=== PATIENT | male | born 1970 | race Caucasian/White ===

== ENCOUNTER 2019-12-02 06:35 | Outpatient (CLI) | payer BC, SELFPAY ==
--- NOTE | ~2019-12-02 | MR_ITS ---
EXAMINATION: MR sacralison wo con DATE: 12/02/2019 07:55 INDICATION: Sacrococcygeal pain. Disorder of coccyx. TECHNIQUE: Magnetic resonance imaging (MRI) of the sacrum was performed without intravenous contrast. Sequences included sagittal PD-weighted FS FSE, coronal oblique T1-weighted FSE, T2-weighted FSE, an d T2-weighted FS FSE, and axial oblique T1-weighted FSE, T2-weighted FS FSE, and STIR FSE. COMPARISON: Lumbar spine radiographs 11/11/2018, CT abdomen and pelvis 07/05/2019 FINDINGS: Bone alignment is normal. No fracture. There is mild osteoarthritis of the sacroiliac joints. There i s mild edema in the soft tissues around the coccyx. IMPRESSION: 1. Mild edema in the soft tissues around the coccyx, consistent with inflammation. No fracture. Reviewed, dictated and finalized at location A. IMPRESSION: 1. Mild edema in the soft tissues around the coccyx, consistent with inflammati on. No fracture.
== END 2019-12-02 06:36 | disposition home or self-care (01) ==
PROVIDERS: PCP Internal Medicine; Visit Provider Internal Medicine Rheumatology
DX: M53.3 Sacrococcygeal disorders, not elsewhere classified (principal); M79.89 Other specified soft tissue disorders
CPT/HCPCS: 72195

== ENCOUNTER 2019-12-12 17:37 | Emergency (ER) | payer BC, SELFPAY ==
--- NOTE | ~2019-12-12 | CT_ITS ---
EXAMINATION: CT brain wo con EXAM DATE: 12/12/2019 18:12 INDICATION: Injury. Dizziness. TECHNIQUE: Spiral CT of the head was performed without contrast. Axial, coronal and sagittal images were reviewed. The dose-length product (DLP) for this examination was 605.33 mGy-cm. The exposure w as tailored according to patient size, and iterative reconstruction (ASIR) was used as additional dos e reduction technique. There is no prior study for comparison. FINDINGS: There is no acute intraparenchymal hemorrhage. No evidence of intraparenchymal brain mass lesion. No evidence of acute infarction. There is no mass effect or midline shift. The ventricles are normal in size. There are no extra-axial collections. There are no acute calvarial fractures. S urgical changes of the left globe. Orbits otherwise unremarkable. Soft tissue is unremarkable. The v isualized sinuses and mastoid air cells are well aerated. IMPRESSION: 1. No acute intracranial findings. Reviewed, dictated and finalized at location A.
--- NOTE | 2019-12-12 17:49 | ED.HEATRA ---
HPI - Head Injury General Chief complaint: Head Injury Stated complaint: hit head on ground Time Seen by Provider: 12/12/19 17:49 Source: patient and RN notes reviewed Mode of arrival: ambulatory Limitations: no limitations History of Present Illness HPI Narrative: Patient states he got up on a ladder to free a branch saw that became stuck when he was trimming a tree. He went up about 3 rungs on the ladder so was 3-4 feet off the ground. When the saw came loose he lost his balance and fell to the ground striking his head. Unknown if he had any loss of consciousness. He states last thing he remembers was his children running to get his . Complaint: head injury Mechanism of Injury: fall Place: home Loss of Consciousness: unsure Location of injury: parietal (right) Severity: mild Quality: dull and aching Radiation: none Other Injuries: none Associated symptoms: confusion and nausea Related Data Home Medications Medication Instructions Recorded Confirmed meloxicam 15 mg PO DAILY PRN 12/12/19 12/12/19 Allergies Allergy/AdvReac Type Severity Reaction Status Date / Time No Known Allergies Allergy Unverified 07/02/15 07:03 Review of Systems Constitutional: Constitutional: Reports no additional constitutional complaints and Denies weakness Eyes: Eyes: Reports no additional eye complaints and Denies change in vision ENT: Reports system reviewed and no additional complaints, except as documented and Denies dizziness Cardiovascular: Cardiovascular: Reports no additional cardiovascular complaints Respiratory: Respiratory: Reports no additional respiratory complaints Gastrointestinal: Gastrointestinal: Reports as per HPI and Reports no additional gastrointestinal complaints Musculoskeletal: Musculoskeletal: Reports no additional musculoskeletal complaints Neurologic: Reports as per HPI Psychiatric: Psychiatric: Reports no additional psychiatric complaints Hematologic/Lymphatic: Hematologic/Lymphatic: Reports no additional hematologic/lymphatic complaints Allergic/Immunologic: Allergic/Immunologic: Reports no additional allergic/immunologic complaints PMFSH Past Medical History Medical History (Updated 12/12/19 @ 18:46 by Artem Salguero MD) Osteoarthritis Surgical History Surgical History (Updated 12/12/19 @ 18:38 by Artem Salguero MD) H/O left knee surgery History of eye surgery left History of shoulder surgery right Exam Const: General: healthy appearing and no acute distress Nutritional Appearance: well nourished and obese centrally obese Orientation/consciousness: patient oriented x3 HENMT: Head: normal to inspection, No palpable skull fracture present, no abrasions and contusion right parietal (Mildly tender patient states it feels numb) Ears: external ears normal, TM's normal bilaterally and EAC's normal Face and sinus: normal facial exam Eyes: Conjunctivae: conjunctivae normal Pupils: Equal, round and reactive pupils present EOM: EOMs intact bilaterally Neck: Neck: normal visual inspection Resp: Effort & Inspection: normal respiratory effort Auscultation: clear to auscultation bilaterally Cardio: Rate: regular rate Rhythm: regular rhythm GI: GI Palp: Yes Soft to palpation and No Tenderness to palpation present (GI) Auscultation: normal bowel sounds : Male General Exam: Yes normal external exam Back/Spine/Pelvis: Cervical Spine: cervical ROM normal Thoracic/Lumbar Spine: thoraco-lumbar ROM normal Skin: General skin exam: normal color Rashes: no rashes Neuro: General: patient oriented x3, moves all extremities and no focal motor deficits Speech: normal speech Gait exam (Neuro): Normal gait present Extrem: General: normal to inspection and no pedal edema Psych: Appearance: grossly normal and well kempt Mental Status: mental status grossly normal Affect: normal affect Attitude: cooperative Thought content: Yes Normal thought content present Course Co
[2019-12-12 17:52] VITALS: BP 143/81; PULSE 96; RESP 22; TEMP 36.7; O2SAT 98
[2019-12-12 18:54] VITALS: RESP 16
== END 2019-12-12 18:55 | disposition home or self-care (01) ==
PROVIDERS: Emergency Provider Emergency Medicine; PCP Internal Medicine
DX: S06.0X0A Concussion without loss of consciousness, initial encounter (principal); W11.XXXA Fall on and from ladder, initial encounter
CPT/HCPCS: 70450; 99282; 99284

== ENCOUNTER 2021-03-07 18:23 | Emergency (ER) | payer BC, SELFPAY ==
--- NOTE | ~2021-03-07 | XR_ITS ---
EXAMINATION: XR chest 2V DATE: 03/07/2021 19:23 INDICATION: Central chest pain. TECHNIQUE: Frontal and lateral views of the chest were obtained on 3 radiographs. COMPARISON: Chest 2 views 07/14/2017 FINDINGS: A calcified left lung nodule is consistent with old granulomatous disease. No pleural effus ion or pneumothorax. The heart size is normal. IMPRESSION: 1. No acute cardiopulmonary disease. Reviewed, dictated and finalized at location A.
--- NOTE | 2021-03-07 18:29 | ECG_ITS ---
Measurements Intervals [place] Rate: 107 P: 56 AK: 159 QRS: -11 QRSD: 111 T: 0 QT: 335 QTc: 448 Interpretive Statements SINUS TACHYCARDIA INCOMPLETE RIGHT BUNDLE BRANCH BLOCK BORDERLINE T WAVE ABNORMALITY- INFERIOR LEADS BASELINE ARTIFACT- I, III, AVL, V1 ABNORMAL ECG Electronically Signed On 03-07-2021 20:19:01 CDT by Omar Whyte D.O.
--- NOTE | 2021-03-07 18:30 | ED.SOB ---
HPI - SOB/Dyspnea General Chief Complaint: Chest Pain Stated Complaint: chest pain Source: patient Mode of arrival: ambulatory Limitations: no limitations History of Present Illness HPI Narrative: this is a 50-year-old gentleman that presents after he was jogging with sharp chest discomfort with some mild shortness of breath with no audible wheezing nonsmoker no history of heart disease or disease in his family with a history of hypertension, the chest pain and shortness of breath have suffered subsequently subsided but he felt a sharp midsternal chest discomfort that lasted a few seconds while he was jogging with no fever chills no cough no abdominal pain no flank pain. MD elicited complaint: shortness of breath and chest pain Onset (ago): hour(s) Timing: constant Severity: moderate Exacerbating factors: nothing Relieving factors: nothing Known history of: DVT Related Data Home Medications Medication Instructions Recorded Confirmed celecoxib 200 mg PO DAILY 03/07/21 03/07/21 cyclobenzaprine 5 mg PO TID 03/07/21 03/07/21 Allergies Allergy/AdvReac Type Severity Reaction Status Date / Time No Known Allergies Allergy Unverified 03/07/21 18:49 Review of Systems Review of Systems: All systems reviewed & are unremarkable except as noted in HPI and below PMFSH Past Medical History Medical History Osteoarthritis Surgical History Surgical History H/O left knee surgery History of eye surgery left History of shoulder surgery right Exam Const: General: no acute distress and alert Orientation/consciousness: patient oriented x3 HENMT: Head: normal to inspection Eyes: Conjunctivae: conjunctivae normal Pupils: Equal, round and reactive pupils present Neck: Neck: normal visual inspection, no lymphadenopathy and no meningeal signs Chest: Chest palpation & inspection: normal inspection of the chest Resp: Effort & Inspection: normal respiratory effort Auscultation: clear to auscultation bilaterally Cardio: Rate: regular rate Rhythm: regular rhythm GI: GI Palp: Yes Soft to palpation Back/Spine/Pelvis: Back: no CVA tenderness Skin: General skin exam: normal color Rashes: no rashes Neuro: General: patient oriented x3 Extrem: General: normal to inspection Psych: Mental Status: mental status grossly normal Affect: normal affect Course Course Emergency Course: Labs and EKG along with chest x-ray reviewed with patient and no evidence of heart disease, advised to follow with his primary care physician. Critical Care Time Critical Care Time Critical Care Time: No Discharge Plan Discharge Clinical Impression: Atypical chest pain Patient Disposition: Home, Self-Care Condition: Stable Instructions: Antibiotic Form, Chest Wall Pain (ED) Additional Instructions: Follow up with primary care physician if symptoms persist or worsen. Prescriptions: No Action celecoxib 200 mg capsule 200 mg PO DAILY RF: 0 cyclobenzaprine 5 mg tablet 5 mg PO TID RF: 0 Follow-up/Referrals: Jesus Clements MD [Primary Care Provider] - Time of Disposition: 19:29
[2021-03-07 18:41] VITALS: BP 153/96; PULSE 101; RESP 20; TEMP 36.4; O2SAT 98
[2021-03-07 19:17] LABS: Troponin I 5.7 ng/L (0.00-60.4)
[2021-03-07 19:40] VITALS: BP 119/88; PULSE 95; RESP 20; O2SAT 96
== END 2021-03-07 19:41 | disposition home or self-care (01) ==
PROVIDERS: Emergency Provider Emergency Medicine; PCP Internal Medicine
DX: R07.89 Other chest pain (principal)
CPT/HCPCS: 36415; 71046; 84484; 93005; 99283; 99284

== ENCOUNTER 2021-05-28 14:10 | Outpatient (CLI) | payer BC, SELFPAY ==
[2021-05-28 15:00] LABS: SARS-CoV-2 RNA PCR Negative (Negative)
== END 2021-05-28 14:11 | disposition home or self-care (01) ==
LOC: CHSLAB 14:12
PROVIDERS: PCP Internal Medicine; Visit Provider Internal Medicine
DX: Z20.822 Contact with and (suspected) exposure to COVID-19 (principal)
CPT/HCPCS: 87081; 87880; C9803; U0003; U0005

== ENCOUNTER 2021-12-17 00:08 | Day surgery (SDC) | payer OTHER, SELFPAY ==
[2021-11-19 14:02] VITALS: BMI 33.4
--- NOTE | 2021-12-06 10:08 | PC.NURSE ---
Spoke with pt re rescheduled colonoscopy. Pt verbalized understanding of updated date/arrival/procedure times. Pt denied any changes to his home medications for health history since previous PAT call completed 11/19/2021.
--- NOTE | 2021-12-17 07:53 | P.PNAN_ITS ---
Anes - Initial Pre Proc Eval Procedure: Operation Date: 12/17/21 13:00 Proposed Procedures p Screening Colonoscopy - Artem Casey MD Date/Time: 12/17/21 07:53 Surgeon: Artem Casey MD Pre Op Diagnosis: hx of colon polyps Patient Data Age: 51 Gender: M Height: 1.88 m Weight: 118 kg Allergies Allergy/AdvReac Type Severity Reaction Status Date / Time No Known Allergies Allergy Unverified 12/17/21 11:41 Home Medications Medication Instructions Recorded Confirmed Type celecoxib 200 mg capsule 200 mg PO DAILY 03/07/21 12/06/21 History cetirizine 10 mg tablet (Zyrtec) 10 mg PO DAILY PRN Allergy Symptoms 11/19/21 12/06/21 History Patient hx anesthesia problems: none Family hx anesthesia problems: none Results Review: All pre-operative results and documents have been reviewed as part of the pre- operative evaluation. [facility] Past Medical History Medical History (Updated 12/17/21 @ 12:11 by Artem Casey MD) Diverticulosis GERD (gastroesophageal reflux disease) Osteoarthritis Surgical History Surgical History H/O left knee surgery History of eye surgery left History of shoulder surgery right Social History Social History Tobacco type: smokeless tobacco Smokeless tobacco user: chewing tobacco Alcohol intake: current Alcohol use details: socially Living arrangements: with family Spiritual care concerns: No Anes - Eval Final PreProcedure Day of Procedure 12/17/21 07:53 Patient weight: obese Heart: regular rate and rhythm Lungs: clear to auscultation Airway: Mallampati scale class II Neurological: alert and oriented Last oral intake: >/= 8 hours ASA classification: II Emergent: no Anesthetic plan: proceed Anesthesia type and monitoring: general GIVS and standard monitoring Results Review: All pre-operative results and documents have been reviewed as part of the pre- operative evaluation. Informed Consent: The patient's anesthetic plan and its attendant risks and benefits were discussed with the patient/family/POA. Questions were solicited and answers provided to the satisfaction of the patient/family/POA.
[2021-12-17 11:43] VITALS: BP 112/81; PULSE 84; RESP 18; TEMP 36.8; O2SAT 99
[2021-12-17] MEDS: LACTATED RINGERS 1,000 ML 150 ML IV CONT (11:57)
--- NOTE | 2021-12-17 12:09 | P.CONGI_ITS ---
Assessment and Plan Assessment and plan (1) History of colon polyps: Code(s): Z86.010 - Personal history of colonic polyps Status: Acute Assessment and Plan: Patient has a prior history of colon polyps. Plan is for surveillance colonoscopy now and at intervals in the future. Typically at 5 year intervals suggested. Further recommendations will be given after colonoscopy. (2) LLQ abdominal pain: Code(s): R10.32 - Left lower quadrant pain Status: Acute Assessment and Plan: Patient complains of left lower quadrant pain that is present constantly. Not evident today on exam. He has a prior history of diverticulosis. This will be assessed at the time of colonoscopy. Continuing high-fiber diet appears prudent. Further recommendations may be given after endoscopy. GI Consult Note Consult date/time: 12/17/21 12:09 Reason for consult: History of colon polyps. HPI: Jim Pacheco is a 51 year old male Presents for screening colonoscopy. Patient has a history of colon polyps in 2014. He states his bowel habits remain normal. Although he has an ongoing left lower quadrant abdominal pain that is been in blamed on diverticular disease. Patient has never tried antibiotics. He states his bowel habits are regular he has had no bleeding. He does maintain a high-fiber diet. Family history is noncontributory. Patient presents today for screening colonoscopy to assess this as well as his history of colon polyps. Review of Systems Review of Systems: Review of systems noncontributory. [facility] Past Medical History Medical History (Updated 12/17/21 @ 12:11 by Artem Casey MD) Diverticulosis GERD (gastroesophageal reflux disease) Osteoarthritis Surgical History Surgical History H/O left knee surgery History of eye surgery left History of shoulder surgery right Social History Social History Tobacco type: smokeless tobacco Smokeless tobacco user: chewing tobacco Alcohol intake: current Alcohol use details: socially Living arrangements: with family Spiritual care concerns: No Meds Home Medications and Allergies Home Medications Medication Instructions Recorded Confirmed Type celecoxib 200 mg capsule 200 mg PO DAILY 03/07/21 12/06/21 History cetirizine 10 mg tablet (Zyrtec) 10 mg PO DAILY PRN Allergy Symptoms 11/19/21 12/06/21 History Allergies Allergy/AdvReac Type Severity Reaction Status Date / Time No Known Allergies Allergy Unverified 12/17/21 11:41 Vital Signs Vital Signs - 24 hr 12/17/21 11:43 Temperature 98.2 F Pulse Rate 84 Respiratory Rate 18 Blood Pressure 112/81 Pulse Oximetry 99 Oxygen Delivery Room Air Exam Narrative: physical exam reveals patient to be alert. Vital signs stable. HEENT exam is unremarkable. Patient is anicteric. Lungs are clear to auscultation and percussion. Heart is without murmur or extra sounds. Abdomen is obese. Bowel sounds are present soft nontender with no organomegaly. Digital rectal exam is normal. Extremities without clubbing cyanosis or edema.
[2021-12-17 13:15] VITALS: BP 127/74; PULSE 76; RESP 17; O2SAT 99
[2021-12-17 13:25] VITALS: BP 126/90; PULSE 73; RESP 19; O2SAT 100
[2021-12-17 13:35] VITALS: BP 119/83; PULSE 73; RESP 18; O2SAT 98
== END 2021-12-17 13:46 | disposition home or self-care (01) ==
PROVIDERS: PCP Internal Medicine; Visit Provider Internal Medicine Gastroenterology
PROC: 0DJD8ZZ Inspection of Lower Intestinal Tract, Via Natural or Artificial Opening Endoscopic (ICD-10-PCS; CPT 45378; principal; 2021-12-17 13:00)
DX: Z12.11 Encounter for screening for malignant neoplasm of colon (principal); K64.8 Other hemorrhoids; K57.30 Diverticulosis of large intestine without perforation or abscess without bleeding; R10.32 Left lower quadrant pain; Z86.010 Personal history of colon polyps; K21.9 Gastro-esophageal reflux disease without esophagitis; M19.90 Unspecified osteoarthritis, unspecified site; F17.220 Nicotine dependence, chewing tobacco, uncomplicated; E66.9 Obesity, unspecified; Z68.34 Body mass index [BMI] 34.0-34.9, adult
CPT/HCPCS: 45378; J2001; J2704; J7120

== ENCOUNTER 2022-03-06 14:09 | Outpatient (CLI) | payer OTHER, SELFPAY ==
--- NOTE | ~2022-03-06 | XR_ITS ---
EXAMINATION: XR lumbar spine 2-3V, XR hip LT min 2V DATE: 03/06/2022 14:33 INDICATION: Lateral left hip pain and medial left leg pain when lifting the leg TECHNIQUE: 1. Anteroposterior and lateral views of the lumbar spine, and cone-down lateral view of the lumbosacr al junction were obtained. 2. AP and frog-leg lateral views of the left hip were obtained. COMPARISON: Lumbar spine radiographs dated 11/11/[address] abdomen and pelvis dated 07/05/2019 FINDINGS: Lumbar spine: Alignment is normal. Vertebral body heights are normal. No fracture. Mild disc height loss at L4-L5 a nd L5-S1. Multilevel mild lumbar facet osteoarthritis. Sacral arches are intact. Mild bilateral sacra l iliac osteoarthritis. Left hip: Alignment is normal. No fracture or suspected avascular necrosis. Left hip joint space is normal. The re is decreased anterosuperior femoral head neck offset with cystic change at the anterosuperior femo ral head neck junction which can be seen with cam-type femoral acetabular impingement. There are a fe w bone islands at the proximal left femur and left acetabulum. Small phlebolith projects over the lef t pubic body. IMPRESSION: 1. No significant change in mild lower lumbar spondylosis. 2. Findings at the left femoral head neck junction suggesting possible cam-type femoral acetabular im pingement which typically presents with pain with flexion, adduction and internal rotation which woul d be similar to the description of the leg pain elevation of the leg. Reviewed, dictated and finalized at location A. IMPRESSION: 1. No significant change in mild lower lumbar spondylosis. 2. 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
== END 2022-03-06 14:10 | disposition home or self-care (01) ==
LOC: CHSIMG 14:12
PROVIDERS: PCP Internal Medicine; Visit Provider Internal Medicine
DX: M25.552 Pain in left hip (principal); M79.605 Pain in left leg
CPT/HCPCS: 72100; 73502

== ENCOUNTER 2023-06-08 21:15 | Emergency (ER) | payer OTHER, SELFPAY ==
--- NOTE | ~2023-06-08 | CT_ITS ---
EXAMINATION: CT abdomen pelvis w con DATE: 06/08/2023 23:19 INDICATION: Left lower quadrant abdominal pain. TECHNIQUE: Computed tomography (CT) of the abdomen and pelvis was performed with 100 mL Omnipaque 350 intravenous contrast. Automated exposure control and iterative reconstruction technique were employe d. The dose-length product was 1551.81 mGy-cm. COMPARISON: CT abdomen and pelvis 07/05/2019 FINDINGS: The visualized portions of the lung bases demonstrate mild atelectasis. No pleural effusion . The heart size is normal. No pericardial effusion. The liver, gallbladder, spleen, pancreas, adrena l glands, and right kidney are normal. There is mild left hydronephrosis. There is a 4 mm stone at le ft ureteral pelvic junction. The prostate is mildly enlarged. There is diverticulosis of the colon wi thout evidence of diverticulitis. There are no dilated loops of bowel. The appendix is normal. There are no pathologically enlarged lymph nodes. There is no free intraperitoneal fluid. There is mild tho racic and lumbar spondylosis. IMPRESSION: 1. 4 mm stone at left ureteropelvic junction with mild left hydronephrosis. Reviewed, dictated and finalized at location E. [employer]
[2023-06-08 21:21] VITALS: BP 148/85; PULSE 87; RESP 20; TEMP 36.6; O2SAT 98
[2023-06-08] MEDS: MORPHINE SULFATE (*CRX) 4 MG/ML INJ 8 MG IV PUSH (21:37)
[2023-06-08 21:48] LABS: Basophils Absolute Auto 0.05 K/mm3 (0.00-0.10); Basophils Percent Auto 0.5 % (0.0-1.0); Eosinophils Absolute Auto 0.39 K/mm3 (0.02-0.50); Eosinophils Percent Auto 4.1 % (1.0-6.0); Hematocrit 42.2 % (40.0-54.0); Hemoglobin 14.6 g/dL (14.0-18.0); Immature Granulocyte Absolute 0.03 K/mm3 (0.00-0.00); Immature Granulocyte Percent A 0.3 % (0.0-0.0); Lymphocytes Percent Auto 13.7 % (18.0-42.0); Mean Corpuscular HGB Conc 34.6 g/dL (32.0-36.0); Mean Corpuscular Hemoglobin 33.9 pg (27.0-31.0); Mean Corpuscular Volume 97.9 fL (78.0-102.0); Mean Platelet Volume 8.2 fl (8.7-11.0); Monocytes Absolute Auto 0.99 K/mm3 (0.10-0.90); Monocytes Percent Auto 10.5 % (2.0-11.0); Neutrophils Absolute Auto 6.7 K/mm3 (1.7-7.2); Neutrophils Percent Auto 70.9 % (50.0-70.0); Platelet Count Result 224 K/mm3 (150-420); Red Blood Count 4.31 M/mm3 (4.70-6.10); Red Cell Distribution Width 11.4 % (11.6-14.4); White Blood Count 9.5 K/mm3 (4.8-10.8)
[2023-06-08 22:09] LABS: Appearance Urine Turbid (Clear); Bilirubin Urine Negative (Negative); Blood Urine 3+ (Negative); Glucose Urine UA 1+ (Negative); Ketones Urine 2+ (Negative); Leukocyte Esterase Ur 2+ LEU/UL (Negative); Nitrate Urine Positive (Negative); Protein Urine 3+ (Negative); pH Urine 6.5 (5.0-8.0)
[2023-06-08 22:12] LABS: Add Urine Microscopic? YES; RBC Urine >75 /hpf (0-2)
[2023-06-08 22:13] LABS: Bacteria Urine 2+ /hpf; Color Urine Dark Brown (Yellow); Squamous Epithelial Cell Urine None seen /hpf (Few)
[2023-06-08 22:20] LABS: Lactic Acid Reflex 1.4 mmol/L (0.4-2.0)
[2023-06-08 22:25] LABS: Alanine Aminotransferase 31 U/L (16-63); Albumin Level 3.5 g/dL (3.4-5.0); Alkaline Phosphatase 81 U/L (46-116); Anion Gap 6 mmol/L (8-16); Aspartate Amino Transferase 19 U/L (15-37); Bilirubin,Total 0.3 mg/dL (0.00-1.00); Blood Urea Nitrogen 15 mg/dL (7-18); Calcium 8.5 mg/dL (8.5-10.1); Carbon Dioxide 30 mmol/L (21-32); Chloride 103 mmol/L (98-108); Estimated CRCL calculation 94 ml/min; Estimated Glomerular Filt Rate > 60; Glucose 97 mg/dL (70-99); Osmolality Calculated 288 mOsm/kg (285-295); Potassium 3.4 mmol/L (3.5-5.1); Sodium 139 mmol/L (136-145); Total Protein 6.8 g/dL (6.4-8.2)
--- NOTE | 2023-06-08 22:38 | ED.ABDPAIN ---
HPI - Abdominal Pain General Chief Complaint: Abdominal Pain Stated Complaint: abd pain Time Seen by Provider: 06/08/23 21:25 History of Present Illness HPI narrative: 52 yo M with history of diverticulitis presents to ER due to LLQ pain, severe, 10/10 in quality, sharp. He has chronic back pain so his back and flank always hurt. Denied fever or chills. Has not had a bowel movement today. Related Data Home Medications Medication Instructions Recorded Confirmed No Home Medications 06/08/23 06/08/23 Allergies Allergy/AdvReac Type Severity Reaction Status Date / Time No Known Allergies Allergy Unverified 12/17/21 11:41 Review of Systems Constitutional: Constitutional: Reports as per HPI and Reports no additional constitutional complaints Eyes: Eyes: Reports as per HPI and Reports no additional eye complaints ENT: Reports system reviewed and no additional complaints, except as documented and Reports as per HPI Cardiovascular: Cardiovascular: Reports as per HPI and Reports no additional cardiovascular complaints Respiratory: Respiratory: Reports as per HPI and Reports no additional respiratory complaints Gastrointestinal: Gastrointestinal: Reports as per HPI and Reports no additional gastrointestinal complaints Genitourinary: Genitourinary: Reports as per HPI Musculoskeletal: Musculoskeletal: Reports no additional musculoskeletal complaints and Reports as per HPI Integumentary/Breasts: Skin/Breast: Reports system reviewed and no additional complaints, except as docu and Reports as per HPI Neurologic: Reports system reviewed and no additional complaints, except as documented and Reports as per HPI Psychiatric: Psychiatric: Reports no additional psychiatric complaints and Reports as per HPI Endocrine: Endocrine: Reports no additional endocrine complaints and Reports as per HPI Hematologic/Lymphatic: Hematologic/Lymphatic: Reports no additional hematologic/lymphatic complaints and Reports as per HPI Allergic/Immunologic: Allergic/Immunologic: Reports no additional allergic/immunologic complaints and Reports as per HPI [facility] Past Medical History Medical History (Updated 06/09/23 @ 01:17 by Jose Alvarez MD) Diverticulosis GERD (gastroesophageal reflux disease) Osteoarthritis Surgical History Surgical History H/O left knee surgery History of eye surgery left History of shoulder surgery right Social History Social History Tobacco type: smokeless tobacco Smokeless tobacco user: chewing tobacco Alcohol intake: current Alcohol use details: socially Living arrangements: with family Spiritual care concerns: No Exam Const: General: cooperative, well developed, alert, awake, ill appearing, average body habitus and well nourished Nutritional Appearance: average body habitus and well nourished Orientation/consciousness: oriented to person, oriented to place and oriented to time Limitations: no limitations HENMT: Head: normal to inspection Ears: hearing grossly normal bilaterally, external ears normal and TM's normal bilaterally Face/Nose/Sinus: Normal external nose present, Normal nares present, No nasal polyps present, Normal nasal mucous membranes and turbinates present, Normal septum present, No nasal discharge present, normal facial exam, sinuses nontender and face symmetric Face and sinus: normal facial exam, sinuses nontender and face symmetric Mouth: Yes Normal oral and palatal mucosa present, Yes lip normal, Yes tongue normal, Yes Normal salivary glands and ducts present, Yes oropharynx normal and Yes moist mucous membranes Teeth and gingiva: dentition normal and gingiva normal Throat: posterior oropharynx normal, tonsils normal and uvula midline Eyes: General: appearance normal, both eyes and all related structures Eyelids: eyelids normal Conjunctivae: conjunctivae norm
[2023-06-08] MEDS: SODIUM CHLORIDE 0.9% IV 1,000 ML 999 ML IV CONT (23:27)
[2023-06-08] MEDS: KETOROLAC 30 MG/ML VIAL (*BKC) IV PUSH (23:28)
--- NOTE | 2023-06-08 23:33 | PC.NURSE ---
POC discussed c pt and . Pt would like transfer to [place] for urology if able. Calls made for transfer.
[2023-06-08 23:48] VITALS: BP 146/85; PULSE 74; RESP 20; TEMP 36.6; O2SAT 98
[2023-06-09] MEDS: TAMSULOSIN HCL 0.4 MG CAPSULE PO (00:01)
--- NOTE | 2023-06-09 01:08 | PC.NURSE ---
Pt accepted by urologist at [facility] for transfer. Per house supv. pt. will have bed when available. Will await call back from Dr Young, hospitalist for admit. POC updated c pt. and explained that he will be staying here until bed is open. Pt resting c fluids infusing as per order.
[2023-06-09] MEDS: MORPHINE SULFATE (*CRX) 4 MG/ML INJ IV PUSH (01:18)
[2023-06-09] MEDS: SODIUM CHLORIDE 0.9% IV 1,000 ML 999 ML IV CONT (01:18)
[2023-06-09 01:24] VITALS: BP 140/85; PULSE 85; RESP 20; TEMP 36.6; O2SAT 99
[2023-06-09 01:31] VITALS: BP 145/86; PULSE 74; RESP 20; TEMP 36.6; O2SAT 99
--- NOTE | 2023-06-09 02:05 | PC.NURSE ---
Report given to GBAAS and pt loaded to cot s difficulty. Pain controlled at this time c fluids continuing to infuse on transfer.
--- NOTE | 2023-06-11 12:27 | PC.NURSE ---
culture noted no growth
== END 2023-06-09 02:09 | disposition short-term general hospital (02) ==
PROVIDERS: Emergency Provider Emergency Medicine; PCP Internal Medicine
DX: N20.0 Calculus of kidney (principal); F17.290 Nicotine dependence, other tobacco product, uncomplicated
CPT/HCPCS: 36415; 74177; 80053; 81001; 83605; 85025; 87086; 96361; 96365; 96374; 96375; 99285; A9270; J0696; J1885; J2270; J7030; Q9967

== ENCOUNTER 2023-06-09 02:55 | Observation (INO) | payer OTHER, SELFPAY ==
[2023-06-09] VITALS (9 sets, daily range): BP systolic 98–133; BP diastolic 48–83; PULSE 62–79; RESP 13–20; TEMP 36.1–36.9; O2SAT 93–99; BMI 36.7
--- NOTE | ~2023-06-09 | XR_ITS ---
XR abdomen/kub 1V 06/09/2023 09:13 INDICATION: Flank pain TECHNIQUE: KUB COMPARISON: None FINDINGS: Bowel gas pattern is normal. There is no evidence of free air, mass, organomegaly, ascites or obstruction. There is a 3 mm stone overlying the left renal pelvis. The bones appear intact. IMPRESSION: 1: Left nephrolithiasis. Reviewed, dictated and finalized at location D. ET SPECIALIST IMPRESSION: 1: Left nephrolithiasis.
--- NOTE | ~2023-06-09 | XR_ITS ---
EXAMINATION: XR retrograde pyelo w/stent LT DATE: 06/09/2023 10:31 INDICATION: Left internal ureteral stent placement TECHNIQUE: Fluoroscopic images from a left internal ureteral stent placement are submitted for review . 12 seconds of fluoroscopy time. 9 fluoroscopic images FINDINGS: There is a left double-J internal ureteral stent projecting in expected position, with proximal [place] loop at the level of the renal pelvis and distal loop in the pelvis within the bladder lumen. IMPRESSION: 1. Left internal ureteral stent placement. Please refer to real-time procedural findings for detail s. Reviewed, dictated and finalized at location L. LEWARE SYSTEMS ARCHITECT IMPRESSION: 1. Left internal ureteral stent placement. Please refer to real-time procedur al findings for details.
--- NOTE | ~2023-06-09 | XR_ITS ---
XR abdomen/kub 1V 06/09/2023 13:36 Indication: Left UPJ stone post stent placement Procedure: KUB Comparison: 06/09/2023 Findings: There is a left internal ureteral stent in expected position. There is a stone in the upper pole of the left kidney. There is residual contrast in the bladder. Bowel gas pattern is nonobstruct yamilex. No acute osseous abnormality. Impression: 1: Left nephrolithiasis. Left internal ureteral stent in expected position. Reviewed, dictated and finalized at location L. ANCE EDUCATION COORDINATOR Impression: 1: Left nephrolithiasis. Left internal ureteral stent in expected position.
--- NOTE | 2023-06-09 02:53 | ADMGEN ---
This patient, Jim Pacheco, was admitted to Medical Room 253-01. Patient/family oriented to hospital policies and general routines including ID bracelet, bed and alarms, visiting hours, pain management, procedures, bathroom and other care routines, personal items, smoking policy, room service/diet, and visiting hours. Information on how to activate the Rapid Response Team has been discussed. Patient/Family are encouraged to report perceived risks to care and to ask questions if they do not understand what they are told or what they should do.
[2023-06-09] MEDS: SODIUM CHLORIDE 0.9% IV 1,000 ML 150 ML IV CONT ×3 (03:20→21:00)
[2023-06-09] MEDS: MORPHINE SULFATE (*CRX) 2 MG/ML INJ IV PUSH (03:20)
[2023-06-09] MEDS: LACTATED RINGERS 1,000 ML 30 ML IV CONT (09:20)
--- NOTE | 2023-06-09 09:54 | WPDURCON ---
Assessment and Plan Assessment and plan (1) Left nephrolithiasis: Code(s): N20.0 - Calculus of kidney Status: Acute Assessment and Plan: Given the hydro with what appears to be infected urine will plan on cysto, left retrograde pyelogram, left ureteral stent placement. Stone will be addressed at a later point time. (2) UTI (urinary tract infection): Code(s): N39.0 - Urinary tract infection, site not specified Status: Acute Assessment and Plan: Cultures pending from [facility] Consult Note HPI Date Seen: 06/09/23 Time Seen: 09:54 Requesting Physician: Doni Patton MD Primary Care Provider: Jesus Clements MD Consult Narrative Reason for consult: Left UPJ stone with mild hydro and UTI Narrative: Jim Pacheco is a 52 year old male who was transferred from [facility]. He presented there was significant left lower quadrant pain. Evaluation in the emergency room revealed a 3-4 mm left UPJ stone with hydro. Although his white count was not elevated his urinalysis appeared infected and they had difficulty controlling his pain. He is now here for further management. Review of Systems Review of Systems: All systems reviewed & are unremarkable except as noted in HPI and below PMFSH Past Medical History Medical History Diverticulosis GERD (gastroesophageal reflux disease) Osteoarthritis Surgical History Surgical History H/O left knee surgery History of eye surgery left History of shoulder surgery right Family History Family History Father Hypertension Mother Hypertension Diverticula, colon Social History Social History Tobacco type: smokeless tobacco Smokeless tobacco user: chewing tobacco Alcohol intake: never Alcohol use details: socially Substance use: never Lack of Transportation: No Lack of Food: Never True Current Housing: I Have Housing Concerned About Future Housing: No Difficulty Paying Gas/Electric Bills: No Difficulty Paying for Meds: No Currently Unemployed: No Education: Associate Degree Difficulty w/ Childcare or Family Care: No Living arrangements: with family Spiritual care concerns: No Meds Home Medications and Allergies Home Medications Medication Instructions Recorded Confirmed Type No Home Medications 06/08/23 06/09/23 History Allergies Allergy/AdvReac Type Severity Reaction Status Date / Time No Known Allergies Allergy Verified 06/09/23 09:44 Vital Signs Vital Signs - 24 hr 06/09/23 02:59 06/09/23 02:56 06/09/23 05:19 Temperature 36.4 C 36.4 C L Pulse Rate 68 62 Respiratory Rate 20 20 Blood Pressure 127/83 118/57 L Pulse Oximetry 98 95 Oxygen Delivery Room Air Exam Const: General: cooperative HENMT: Head: normal to inspection Resp: Effort & Inspection: normal respiratory effort Cardio: Rate: regular rate
--- NOTE | 2023-06-09 10:02 | WPDHPUPDATE1 ---
History and Physical Update Update Date/Time: 06/09/23 10:02 History and Physical has been reviewed, including an updated exam of the patient. There are NO changes in the patient's condition. Risks, benefits, and alternatives have been discussed and questions answered. Patient agrees to proceed with procedure.
--- NOTE | 2023-06-09 10:04 | WPDANESEPPF ---
Anes - Initial Pre Proc Eval Procedure: Operation Date: 06/09/23 10:15 Proposed Procedures p Cystoscopy, Left Retrograde Pyelogram, Left Stent Placement - Kamron Crabtree MD Date/Time: 06/09/23 10:04 Surgeon: Doni Patton MD Pre Op Diagnosis: Hydronephrosis w/Kidney Infection Patient Data Age: 52 Gender: M Height: 1.88 m Weight: 129.7 kg Last Vital Signs Temp 36.4 C L 06/09/23 05:19 Pulse 62 06/09/23 05:19 Resp 20 06/09/23 05:19 BP 118/57 L 06/09/23 05:19 Pulse Ox 95 06/09/23 05:19 O2 Del Method Room Air 06/09/23 02:59 Allergies Allergy/AdvReac Type Severity Reaction Status Date / Time No Known Allergies Allergy Verified 06/09/23 09:44 Home Medications Medication Instructions Recorded Confirmed Type No Home Medications 06/08/23 06/09/23 History Patient hx anesthesia problems: none Family hx anesthesia problems: none Results Review: All pre-operative results and documents have been reviewed as part of the pre-operative evaluation. [facility] [place] Past Medical History Medical History Diverticulosis GERD (gastroesophageal reflux disease) Osteoarthritis Surgical History Surgical History H/O left knee surgery History of eye surgery left History of shoulder surgery right Family History Family History Father Hypertension Mother Hypertension Diverticula, colon Social History Social History Tobacco type: smokeless tobacco Smokeless tobacco user: chewing tobacco Alcohol intake: never Alcohol use details: socially Substance use: never Lack of Transportation: No Lack of Food: Never True Current Housing: I Have Housing Concerned About Future Housing: No Difficulty Paying Gas/Electric Bills: No Difficulty Paying for Meds: No Currently Unemployed: No Education: Associate Degree Difficulty w/ Childcare or Family Care: No Living arrangements: with family Spiritual care concerns: No Anes - Eval Final PreProcedure Day of Procedure 06/09/23 10:04 Patient weight: obese Heart: regular rate and rhythm Lungs: clear to auscultation Airway: Mallampati scale class II Neurological: alert and oriented Last oral intake: >/= 8 hours ASA classification: II Emergent: no Anesthetic plan: proceed Anesthesia type and monitoring: general GIVS and standard monitoring Results Review: All pre-operative results and documents have been reviewed as part of the pre-operative evaluation. Informed Consent: The patient's anesthetic plan and its attendant risks and benefits were discussed with the patient/family/POA. Questions were solicited and answers provided to the satisfaction of the patient/family/POA.
--- NOTE | 2023-06-09 10:32 | W.PM.PROC2 ---
Procedure Note - Detailed Date of Procedure 06/09/23 Pre-op Diagnosis Left hydronephrosis w/Kidney Infection Post-op Diagnosis Same Procedure Performed Cystoscopy, left retrograde pyelogram, left ureteral stent placement 4.8 Hungarian contour Surgeon Kamron Crabtree MD Anesthesia General Description of Procedure Patient is taken the operative suite correctly identified. Once anesthesia was obtained was placed in dorsal lithotomy position and prepped and draped usual sterile fashion. Twenty-two Hungarian scope was inserted the bladder. There were no tumors noted. The left year orifice was cannulated with a ureteral catheter and a pyelogram was performed. There were no filling defects in the ureter. The stone appeared to be at the UPJ area. A Sensor wire was then advanced up into the renal pelvis. 4.8 Hungarian contour stent was then placed with the proximal end coiled in the left renal pelvis and the distal in the bladder. Bladder was drained. 2% viscous lidocaine was inserted urethra and patient is taken recovery stable condition. Once he gets over his acute infection will plan obtaining a KUB and scheduling him for lithotripsy if his stone is visible. This completes dictation. Please send a copy of op note to my office. Estimated Blood Loss 0 Urine Output 0 Drains Yes Packing No Pathology None sent Complications No immediate complications Condition Stable Disposition PACU
[2023-06-09] MEDS: levoFLOXacin 500 MG/D5W 100 ML 500 MG/100 ML BAG 100 MG IVPB (12:35)
--- NOTE | 2023-06-09 17:25 | PM.IMHP ---
H&P: HPI History of Present Illness Date/Time: 06/09/23 17:25 Chief Complaint: Patient complaining of left flank pain for last couple of days Narrative: Pleasant 52 years old obese male is complaining of left flank pain for the last couple of days, which is now getting progressively worse, intensity 9 to 10/10 radiating to the back, and he came to the ER for evaluation. Workup was done which showed left UPJ calculus 4 mm in size with hydronephrosis. Patient started on IV hydration, IV antibiotics and admitted for urology evaluation, close monitoring and further intervention. Review of Systems Review of Systems: 14 systems were reviewed with pertinent positives and negatives per HPI. Except as documented in the HPI/progress notes, all other systems were reviewed and are negative. All systems reviewed & are unremarkable except as noted in HPI and below PMFSH Past Medical History Medical History (Updated 06/09/23 @ 17:32 by Doni Patton MD) Diverticulosis GERD (gastroesophageal reflux disease) Obesity Osteoarthritis Surgical History Surgical History H/O left knee surgery History of eye surgery left History of shoulder surgery right Family History Family History Father Hypertension Mother Hypertension Diverticula, colon Social History Social History Tobacco type: smokeless tobacco Smokeless tobacco user: chewing tobacco Alcohol intake: never Alcohol use details: socially Substance use: never Lack of Transportation: No Lack of Food: Never True Current Housing: I Have Housing Concerned About Future Housing: No Difficulty Paying Gas/Electric Bills: No Difficulty Paying for Meds: No Currently Unemployed: No Education: Associate Degree Difficulty w/ Childcare or Family Care: No Living arrangements: with family Spiritual care concerns: No Meds Home Medications and Allergies Home Medications Medication Instructions Recorded Confirmed Type No Home Medications 06/08/23 06/09/23 History Allergies Allergy/AdvReac Type Severity Reaction Status Date / Time No Known Allergies Allergy Verified 06/09/23 09:44 Vital Signs Vital Signs - 24 hr 06/09/23 02:59 06/09/23 02:56 06/09/23 05:19 Temperature 36.4 C 36.4 C L Pulse Rate 68 62 Respiratory Rate 20 20 Blood Pressure 127/83 118/57 L Pulse Oximetry 98 95 Oxygen Delivery Room Air Oxygen Flow Rate 06/09/23 09:15 06/09/23 10:33 06/09/23 10:45 Temperature 36.1 C L 36.9 C Pulse Rate 64 69 63 Respiratory Rate 18 13 14 Blood Pressure 133/75 98/67 L 98/64 L Pulse Oximetry 99 97 98 Oxygen Delivery Room Air Simple Face Mask Room Air Oxygen Flow Rate 6 06/09/23 11:00 06/09/23 08:00 06/09/23 11:15 Temperature Pulse Rate 69 65 Respiratory Rate 15 15 Blood Pressure 99/64 L 121/77 Pulse Oximetry 98 98 Oxygen Delivery Room Air Room Air Room Air Oxygen Flow Rate Exam Narrative: PHYSICAL EXAMINATION: Vital signs: Please see the chart General physical exam: patient lying in bed, cooperative, appears in no acute distress at this time Head/eyes: Atraumatic, EOMI, PERRLA ENT: Moist mucous membranes, nasal passages clear Neck: Supple, full range of motion, trachea midline CVS: S1 + S2, regular rate and rhythm, no murmurs Respiratory: Bilaterally fair air entry in both lung toure, mild B/L crackles, symmetric chest expansion, no distress Abdomen: Soft, non-tender, bowel sounds +ve, no organomegaly Urology: + left CVA tenderness, no bladder distention Extremities: No clubbing, no cyanosis, no edema, no calf tenderness Musculoskeletal: Moves all, adequate range of motion, no muscle spasms Skin: Warm, dry, no jaundice, no cyanosis Neurological: Awake, alert, oriented x 3, cranial nerves II-XII intact, no focal neurological d
[2023-06-10 04:00] VITALS: BP 100/48; PULSE 63; RESP 18; TEMP 36.4; O2SAT 93
[2023-06-10] MEDS: SODIUM CHLORIDE 0.9% IV 1,000 ML 150 ML IV CONT (04:41)
[2023-06-10 04:57] VITALS: BP 126/63; PULSE 56; RESP 20; TEMP 36.3; O2SAT 100
[2023-06-10 05:12] LABS: Basophils Percent Auto 0.1 % (0.2-1.2); Eosinophils Absolute Auto 0.1 K/mm3 (0-0.3); Eosinophils Percent Auto 1.3 % (0-4.4); Hemoglobin 12.2 g/dL (14.0-18.0); Immature Granulocyte Absolute 0.02 K/mm3 (0.00-0.031); Immature Granulocyte Percent A 0.2 % (0-0.5); Lymphocytes Absolute Auto 1.03 K/mm3 (0.9-3.2); Mean Corpuscular HGB Conc 33.9 g/dl (32-36); Mean Corpuscular Hemoglobin 33.7 pg (26-34); Mean Corpuscular Volume 99.4 fl (80-100); Mean Platelet Volume 8.5 fl (7.4-10.4); Monocytes Absolute Auto 0.6 K/mm3 (0.1-0.6); Monocytes Percent Auto 6.7 % (2.6-8.5); Neutrophils Absolute Auto 7.6 K/mm3 (1.3-6.7); Neutrophils Percent Auto 80.7 % (45.5-73.1); Platelet Count Result 177 k/mm3 (150-375); Red Blood Count 3.62 M/mm3 (4.6-6.20); Red Cell Distribution Width 11.5 % (11.5-14.5); White Blood Count 9.4 K/mm3 (4.5-10.0)
[2023-06-10 05:26] LABS: Potassium 3.7 mmol/L (3.4-5.0)
[2023-06-10 05:28] LABS: Anion Gap 6 mmol/L (8-16); Blood Urea Nitrogen 12 mg/dL (9-20); Calcium 8.1 mg/dL (8.4-10.2); Carbon Dioxide 24 mmol/L (22-30); Chloride 108 mmol/L (98-107); Estimated CRCL calculation 118 ml/min; Estimated Glomerular Filt Rate > 60; Glucose 137 mg/dL (65-110); Magnesium 2.2 mg/dL (1.6-2.3); Phosphorus 2.7 mg/dL (2.5-4.5); Sodium 138 mmol/L (137-145)
[2023-06-10 08:37] VITALS: BP 117/66; PULSE 57; RESP 20; TEMP 36.4; O2SAT 97
[2023-06-10 08:38] VITALS: RESP 20; O2SAT 100
[2023-06-10] MEDS: levoFLOXacin 500 MG/D5W 100 ML 500 MG/100 ML BAG 100 MG IVPB (11:10)
--- NOTE | 2023-06-10 13:40 | PM.DS ---
DS: Admitting Diagnosis Discharge Date 06/10/2023: Admitting Diagnosis Left ureteric nephrolithiasis Left ureteric colic DS: Discharge Diagnosis Discharge Diagnosis (1) Ureteric colic: Code(s): N23 - Unspecified renal colic Status: Acute (2) LLQ abdominal pain: Code(s): R10.32 - Left lower quadrant pain Status: Acute (3) UTI (urinary tract infection): Code(s): N39.0 - Urinary tract infection, site not specified Status: Acute (4) History of colon polyps: Code(s): Z86.010 - Personal history of colonic polyps Status: Acute (5) Osteoarthritis: Code(s): M19.90 - Unspecified osteoarthritis, unspecified site Status: Acute (6) Obesity: Code(s): E66.9 - Obesity, unspecified Status: Acute DS: Summary Hospital Course Reason for hospitalization: Patient admitted with left flank pain for a couple of days Hospital Course: H&P: HPI History of Present Illness Date/Time: 06/09/23? 17:25 Chief Complaint: Patient complaining of left flank pain for last couple of days Narrative: Pleasant 52 years old obese male is complaining of left flank pain for the last couple of days, which is now getting progressively worse, intensity 9 to 10/10 radiating to the back,? and he came to the ER? for evaluation. Workup was done which showed left UPJ calculus 4 mm in size with hydronephrosis.? Patient started on IV? hydration, IV antibiotics and admitted for urology evaluation, close monitoring and further intervention. HOSPITAL COURSE ... 06/09/2023 - 06/10/2023: Patient evaluated by Urology and went cystoscopy with left JJ stent insertion yesterday. Postop he is doing well. Pain is under control on meds. He has been cleared by Urology to be discharged patient. He has received 2 doses of IV Levaquin in the hospital. I will order oral Levaquin for 5 more days to complete 7 days course of antibiotics. He is advised regarding adequate hydration to avoid kidney stone formation and close follow-up with PCP and Urology as an outpatient. Detailed discharge directions delivered to the patient by myself and my nursing staff, who verbalizes understanding and is very happy and satisfied with the plan. Patient has been advised to continue all medications as prescribed and advised, and f/u with PCP within 1 week. Patient is stable from medical standpoint to be discharged. Total time spent during patient evaluation and assessment, discussion with the nurse/family, addressing discharge medications/scripts and coordination of care for safe discharge was in excess of 35 minutes. Status at Discharge Functional status at discharge: independent ambulation Overall status at discharge: patient is progressing back to baseline Time Spent with Patient Time attestation: Total time spent providing and/or coordinating discharge services: Time spent: Greater than 30 minutes Exam Narrative: PHYSICAL EXAMINATION: Vital signs: Please see the chart General physical exam: ? patient lying in bed,? cooperative, appears in no acute distress? at this time Head/eyes: Atraumatic, EOMI, PERRLA ENT: Moist mucous membranes, nasal passages clear Neck: Supple, full range of motion, trachea midline CVS: S1 + S2, regular rate and rhythm, no murmurs Respiratory: Bilaterally fair air entry in both lung toure, mild B/L crackles, symmetric chest expansion, no distress Abdomen: Soft, non-tender, bowel sounds +ve, no organomegaly Urology: + left CVA tenderness,? no bladder distention Extremities: No clubbing, no cyanosis, no edema, no calf tenderness Musculoskeletal: Moves all, adequate range of motion, no muscle spasms Skin: Warm, dry, no jaundice, no cyanosis Neurological: Awake, alert, oriented x 3, cranial nerves II-XII intact, no focal neurological deficits Psychiatric: Normal mood, non suicidal DS: Data Data Completed and Pending Labs on day of discharge: Labs from last 24 hours 06/10/23 04:45
[2023-06-10 13:44] VITALS: BP 121/69; PULSE 78; RESP 20; TEMP 36.2; O2SAT 99
--- NOTE | 2023-06-10 13:52 | WPDANESPN ---
Anes - Prog Note Post-Op Date/Time: 06/10/23 13:52 Cardiovascular status: normal Respiratory status: normal Airway patency: baseline Mental status: baseline Post-Op hydration status: normal Vital Signs: Last Vital Signs Temp 97.2 F L 06/10/23 13:44 Pulse 78 06/10/23 13:44 Resp 20 06/10/23 13:44 BP 121/69 06/10/23 13:44 Pulse Ox 99 06/10/23 13:44 O2 Del Method Room Air 06/10/23 08:38 O2 Flow Rate 6 06/09/23 10:33 Pain Score (VAS): 3 I/O: Intake & Output 06/09/23 06/10/23 06/10/23 23:59 07:59 15:59 Intake Total 1930 1140 1580 Output Total 900 600 550 Balance 1869 264 1566 Laboratory Tests 06/10/23 04:45 06/10/23 04:45 06/10/23 04:45 WBC 9.4 RBC 3.62 L Hgb 12.2 L Hct 36.0 L MCV 99.4 MCH 33.7 MCHC 33.9 RDW 11.5 Plt Count 177 MPV 8.5 Immature Gran % (Auto) 0.2 Neut % (Auto) 80.7 H Lymph % (Auto) 11.0 L [place] % (Auto) 6.7 Eos % (Auto) 1.3 Baso % (Auto) 0.1 L Lymph # (Auto) 1.03 [place] # (Auto) 0.6 Eos # (Auto) 0.1 Baso # (Auto) 0.0 Abs Immat Gran (auto) 0.02 Absolute Neuts (auto) 7.6 H Absolute Nucleated RBC 0.0 Nucleated RBC % 0.0 Sodium 138 Potassium 3.7 Chloride 108 H Carbon Dioxide 24 Anion Gap 6 L BUN 12 Creatinine 0.90 Estim Creat Clear Calc 118 Estimated GFR > 60 Glucose 137 H Calcium 8.1 L Phosphorus 2.7 Magnesium 2.2 Post-procedural complaints: none Patient Feedback: Patient satisfied with anesthetic care.
== END 2023-06-10 14:35 | disposition home or self-care (01) ==
PROVIDERS: Urology; Admitting Provider Internal Medicine; PCP Internal Medicine; Visit Provider Family Medicine
PROC: (CPT 52352; principal; 2023-06-09 10:15)
DX: N13.6 Pyonephrosis (principal); N23 Unspecified renal colic; N39.0 Urinary tract infection, site not specified; K57.90 Diverticulosis of intestine, part unspecified, without perforation or abscess without bleeding; K21.9 Gastro-esophageal reflux disease without esophagitis; E66.9 Obesity, unspecified; M19.90 Unspecified osteoarthritis, unspecified site; F17.290 Nicotine dependence, other tobacco product, uncomplicated
CPT/HCPCS: 52332; 36415; 74018; 74420; 80048; 83735; 84100; 85025; C1758; C1769; C2617; G0378; G0379; J1100; J1956; J2250; J2270; J2405; J2704; J3010; J7030; J7120; Q9966

== ENCOUNTER 2023-06-15 08:40 | Outpatient (CLI) | payer OTHER, SELFPAY ==
--- NOTE | ~2023-06-15 | XR_ITS ---
EXAMINATION: XR abdomen/kub 1V INDICATION: Kidney stones TECHNIQUE: Supine views of the abdomen were obtained on 2 radiographs. COMPARISON: 06/09/2023 FINDINGS: A left internal ureteral stent is in expected position. There is a stable 2 mm stone of the left kidney upper pole. No additional urolithiasis is identified. There is a phlebolith of the left pelvis. The bowel gas pattern is normal. IMPRESSION: 1. Stable left nephrolithiasis. Left internal ureteral stent in expected position. Reviewed, dictated and finalized at location B. PATIONAL THERAPIST REHAB MANAGER IMPRESSION: 1. Stable left nephrolithiasis. Left internal ureteral stent in expected positi on.
== END 2023-06-15 08:41 | disposition home or self-care (01) ==
LOC: ANHIMG 08:44
PROVIDERS: PCP Internal Medicine; Visit Provider Urology
DX: N20.0 Calculus of kidney (principal)
CPT/HCPCS: 74018

== ENCOUNTER 2023-06-24 07:54 | Outpatient (CLI) | payer OTHER, SELFPAY ==
[2023-06-24 08:43] LABS: INR 1.1; Partial Thromboplastin Time 31.2 SECONDS (22.3-36.8); Prothrombin Time 14.9 Seconds (11.1-14.7)
== END 2023-06-24 07:55 | disposition home or self-care (01) ==
LOC: ANHSURGERY 07:57
PROVIDERS: PCP Internal Medicine; Visit Provider Urology
DX: Z01.818 Encounter for other preprocedural examination (principal); N20.0 Calculus of kidney
CPT/HCPCS: 36415; 85610; 85730; 87086

== ENCOUNTER 2023-07-02 01:15 | Day surgery (SDC) | payer OTHER, SELFPAY ==
[2023-06-23 12:00] VITALS: BMI 35.3
--- NOTE | 2023-06-23 12:05 | PC.NURSE ---
Report to the Outpatient Waiting Room, entrance under the green pavilion located off [facility], at time 11:00 on date 07/02/23. Planned Procedure Time: 1:00. Time changes happen often and if your time is changed the preop area will call you the afternoon before. - You and your visitor will be asked to self-screen and do not enter if you have any COVID symptoms. - A mask is optional within the hospital at this time. Patients may have clear liquids (water, carbonated beverages, clear teas, apple juice) until 3 hours prior to surgery (10:00) with a maximum of 20 ounces. - No food from midnight until time of surgery Take the following medications with a SIP of water the morning of surgery: N/A DO NOT STOP ANY OF YOUR OTHER PRESCRIPTION MEDICATIONS PRIOR TO SURGERY ?EXCEPT THE FOLLOWING Medications to discontinue per physician: N/A Date to take last dose: N/A Please no make-up, nail american, hairspray, perfume, deodorant, or body powder the day of surgery. No jewelry (including any body piercings) or valuables the day of surgery, leave them at home. Please take a shower or bath the night before, or the morning of, surgery with an antibacterial soap. Wear comfortable, loose fitting clothing. - Jewelry must be removed prior to entering the operating room. Rings and piercings that are not removed may be cut off. - The hospital will not accept responsibility for valuables. - Please leave all valuables, including medications, at home the day of surgery. If you are going home after surgery, a licensed transit driver must drive you home. - NO public transportation without another adult if you receive anesthesia. - We recommend that an adult stay with you for 24 hours following discharge. - We also recommend that you do not drive, make important decision, drink alcoholic beverages, or take any drugs that were not prescribed by your health care provider for at least 24 hours after your discharge time. Follow any additional instructions given to you from your surgeon. If you or anyone in your household have experienced Covid symptoms in the past week, please notify your surgeon or the nurse liaison at the phone number below for possible testing. Telephone instructions given to PT - CRISTIANE LEE and asked if any additional questions and then verbalized understanding. Patient advised to call surgeon office or pre surgery nurse liaison [phone] if any additional questions.
--- NOTE | 2023-07-01 14:48 | WPDANESEPPF ---
Anes - Initial Pre Proc Eval Procedure: Operation Date: 07/02/23 13:00 Proposed Procedures p Left Renal Extracorporeal Shock Wave Lithotripsy - Kamron Crabtree MD Date/Time: 07/01/23 14:48 Surgeon: Kamron Crabtree MD Pre Op Diagnosis: left renal stone Patient Data Age: 53 Gender: M Height: 1.88 m Weight: 124.75 kg Allergies Allergy/AdvReac Type Severity Reaction Status Date / Time No Known Allergies Allergy Verified 06/23/23 11:59 Home Medications Medication Instructions Recorded Confirmed Type oxycodone-acetaminophen 5 mg-325 1 tablet PO Q6H PRN Pain 07/02/23 07/02/23 History mg tablet Patient hx anesthesia problems: none Family hx anesthesia problems: none Results Review: All pre-operative results and documents have been reviewed as part of the pre-operative evaluation. [facility] Past Medical History Medical History (Updated 06/10/23 @ 13:59 by Doni Patton MD) Diverticulosis GERD (gastroesophageal reflux disease) Obesity Osteoarthritis Surgical History Surgical History H/O left knee surgery History of eye surgery left History of shoulder surgery right Family History Family History Father Hypertension Mother Hypertension Diverticula, colon Social History Social History Smoking status: Never smoker Tobacco type: smokeless tobacco Smokeless tobacco user: chewing tobacco Alcohol intake: current Drinks per week: 6 Alcohol use details: socially Substance use: never Substance use type: does not use Do You Feel Safe in your Home?: No Lack of Transportation: No Lack of Food: Never True Current Housing: I Have Housing Concerned About Future Housing: No Difficulty Paying Gas/Electric Bills: No Difficulty Paying for Meds: No Currently Unemployed: No Education: Associate Degree Difficulty w/ Childcare or Family Care: No Living arrangements: with family Spiritual care concerns: No Anes - Eval Final PreProcedure Day of Procedure 07/01/23 14:48 Patient weight: obese Heart: regular rate and rhythm Lungs: clear to auscultation Airway: Mallampati scale class II Neurological: alert and oriented Last oral intake: >/= 8 hours ASA classification: II Emergent: no Anesthetic plan: proceed Anesthesia type and monitoring: general LMA and standard monitoring Results Review: All pre-operative results and documents have been reviewed as part of the pre-operative evaluation. Informed Consent: The patient's anesthetic plan and its attendant risks and benefits were discussed with the patient/family/POA. Questions were solicited and answers provided to the satisfaction of the patient/family/POA.
--- NOTE | ~2023-07-02 | XR_ITS ---
EXAMINATION: XR abdomen/kub 1V DATE: 07/02/2023 11:09 INDICATION: Kidney stone. TECHNIQUE: A supine view of the abdomen on 2 radiographs was obtained. COMPARISON: Abdomen radiographs 06/15/2023, CT abdomen and pelvis 06/08/2023 FINDINGS: There are no dilated loops of bowel. There is a 4 mm stone in the left kidney. There is a l eft internal ureteral stent in expected position. IMPRESSION: 1. 4 mm stone in the left kidney. 2. Left internal ureteral stent in expected position. Reviewed, dictated and finalized at location A. HALMOLOGIST
[2023-07-02 11:43] VITALS: BP 131/73; PULSE 63; RESP 18; TEMP 36.6; O2SAT 99
[2023-07-02 11:45] VITALS: BMI 35.6
--- NOTE | 2023-07-02 12:12 | PM.IMHP ---
H&P: HPI History of Present Illness Date/Time: 07/02/23 12:12 Chief Complaint: left renal calculus Narrative: 53 yr old male with a 4-5 mm left renal calculus. Had a stent placed prior as it was obstructing. Presents now for eswl of the left renal calculus Review of Systems Review of Systems: All systems reviewed & are unremarkable except as noted in HPI and below PMFSH Past Medical History Medical History Diverticulosis GERD (gastroesophageal reflux disease) Obesity Osteoarthritis Surgical History Surgical History H/O left knee surgery History of eye surgery left History of shoulder surgery right Family History Family History Father Hypertension Mother Hypertension Diverticula, colon Social History Social History Smoking status: Never smoker Tobacco type: smokeless tobacco Smokeless tobacco user: chewing tobacco Alcohol intake: current Drinks per week: 6 Alcohol use details: socially Substance use: never Substance use type: does not use Do You Feel Safe in your Home?: No Lack of Transportation: No Lack of Food: Never True Current Housing: I Have Housing Concerned About Future Housing: No Difficulty Paying Gas/Electric Bills: No Difficulty Paying for Meds: No Currently Unemployed: No Education: Associate Degree Difficulty w/ Childcare or Family Care: No Living arrangements: with family Spiritual care concerns: No Meds Home Medications and Allergies Home Medications Medication Instructions Recorded Confirmed Type oxycodone-acetaminophen 5 mg-325 1 tablet PO Q6H PRN Pain 07/02/23 07/02/23 History mg tablet Allergies Allergy/AdvReac Type Severity Reaction Status Date / Time No Known Allergies Allergy Verified 06/23/23 11:59 Vital Signs Vital Signs - 24 hr 07/02/23 11:43 Temperature 36.6 C Pulse Rate 63 Respiratory Rate 18 Blood Pressure 131/73 Pulse Oximetry 99 Exam Const: General: cooperative and comfortable Resp: Effort & Inspection: normal respiratory effort Cardio: Rate: regular rate Rhythm: regular rhythm Assessment and Plan Assessment and plan (1) Left renal stone: Code(s): N20.0 - Calculus of kidney Status: Acute Assessment and Plan: Proceed with left renal eswl
--- NOTE | 2023-07-02 12:15 | WPDHPUPDATE1 ---
History and Physical Update Update Date/Time: 07/02/23 12:15 History and Physical has been reviewed, including an updated exam of the patient. There are NO changes in the patient's condition. Risks, benefits, and alternatives have been discussed and questions answered. Patient agrees to proceed with procedure. Proceed with left renal eswl
[2023-07-02] MEDS: LACTATED RINGERS 1,000 ML 30 ML IV CONT ×2 (12:30→13:40)
[2023-07-02] MEDS: ceFAZolin 3 GM/D5W 100 ML 100 ML IVPB (12:33)
--- NOTE | 2023-07-02 13:13 | W.PM.PROC2 ---
Procedure Note - Detailed Date of Procedure 07/02/23 Pre-op Diagnosis left renal stone Post-op Diagnosis Same Procedure Performed Lithotripsy of left renal calculus Surgeon Kamron Crabtree MD Anesthesia General Description of Procedure Patient was taken to the operative suite correctly identified. Once anesthesia was obtained the stone was localized in both planes. Two thousand five hundred shocks were given to the stone. There appeared to be some fragmentation. Patient tolerated procedure well without any complications and was taken recovery stable condition. He will follow-up in 7-10 days with KUB and possible stent removal. This completes dictation. Please send a copy of op note to my office Estimated Blood Loss 0 Drains Yes (Has indwelling stent) Packing No Pathology None sent Complications No immediate complications Condition Stable Disposition PACU
[2023-07-02 13:15] VITALS: BP 101/79; PULSE 60; RESP 12; TEMP 36.2; O2SAT 98
[2023-07-02 13:30] VITALS: BP 123/77; PULSE 63; RESP 12; O2SAT 99
[2023-07-02 13:45] VITALS: BP 120/78; PULSE 61; RESP 12; O2SAT 97
[2023-07-02 13:47] VITALS: BP 135/77; PULSE 60; RESP 12
[2023-07-02 14:17] VITALS: BP 127/75; PULSE 62; RESP 12
== END 2023-07-02 14:20 | disposition home or self-care (01) ==
PROVIDERS: PCP Internal Medicine; Visit Provider Urology
PROC: (CPT 50590; principal; 2023-07-02 13:00)
DX: N20.0 Calculus of kidney (principal); E66.9 Obesity, unspecified; Z68.35 Body mass index [BMI] 35.0-35.9, adult; F17.220 Nicotine dependence, chewing tobacco, uncomplicated
CPT/HCPCS: 50590; 36415; 74018; 85610; 85730; 87086; J0690; J1100; J2250; J2405; J2704; J3010; J7120

== ENCOUNTER 2023-07-09 12:17 | Outpatient (CLI) | payer OTHER, SELFPAY ==
--- NOTE | ~2023-07-09 | XR_ITS ---
EXAMINATION: XR abdomen/kub 1V INDICATION: Left-sided kidney stone, recent lithotripsy TECHNIQUE: Supine views of the abdomen were obtained on 2 radiographs. COMPARISON: 07/02/2023 FINDINGS: A left internal ureteral stent is in expected position. Subtle stone fragments are seen in the left kidney lower pole, consistent with history of interval lithotripsy. The visualized lung base s are clear. The bowel gas pattern is normal. IMPRESSION: 1. Fragmentation of the previously described left kidney lower pole stone, consistent with history of interval lithotripsy. Left internal ureteral stent in expected position. Reviewed, dictated and finalized at location A. OUR GRINDER IMPRESSION: 1. Fragmentation of the previously described left kidney lower pole stone, cons istent with history of interval lithotripsy. Left internal ureteral stent in ex pected position.
== END 2023-07-09 12:18 | disposition home or self-care (01) ==
LOC: ANHIMG 12:20
PROVIDERS: PCP Internal Medicine; Visit Provider Urology
DX: N20.0 Calculus of kidney (principal); Z96.0 Presence of urogenital implants
CPT/HCPCS: 74018

== ENCOUNTER 2023-09-07 12:23 | Outpatient (CLI) | payer OTHER, SELFPAY ==
--- NOTE | ~2023-09-07 | XR_ITS ---
EXAMINATION: XR lumbar spine 2-3V DATE: 09/07/2023 13:11 INDICATION: Low back pain TECHNIQUE: Anteroposterior and lateral views of the lumbar spine, and cone-down lateral view of the l umbosacral junction were obtained. COMPARISON: 03/06/2022 FINDINGS: Bone alignment is normal. There is no fracture. There is mild loss of intervertebral disc s pace height at L4-5 and L5-S1. The vertebral body heights are maintained. There is mild facet joint o steoarthritis of the lower lumbar spine. IMPRESSION: 1. Mild lumbar spondylosis without acute findings or significant interval change. Reviewed, dictated and finalized at location B. CONDUCTOR ENGINEER IMPRESSION: 1. Mild lumbar spondylosis without acute findings or significant interval eladio zimmer
[2023-09-07 12:42] LABS: Basophils Absolute Auto 0.06 K/mm3 (0.00-0.10); Basophils Percent Auto 0.8 % (0.0-1.0); Eosinophils Absolute Auto 0.48 K/mm3 (0.02-0.50); Eosinophils Percent Auto 6.8 % (1.0-6.0); Hematocrit 47.5 % (40.0-54.0); Hemoglobin 16.3 g/dL (14.0-18.0); Immature Granulocyte Absolute 0.03 K/mm3 (0.00-0.00); Immature Granulocyte Percent A 0.4 % (0.0-0.0); Lymphocytes Absolute Auto 1.81 K/mm3 (1.10-4.50); Lymphocytes Percent Auto 25.5 % (18.0-42.0); Mean Corpuscular HGB Conc 34.3 g/dL (32.0-36.0); Mean Corpuscular Hemoglobin 33.1 pg (27.0-31.0); Mean Corpuscular Volume 96.5 fL (78.0-102.0); Mean Platelet Volume 8.1 fl (8.7-11.0); Monocytes Absolute Auto 0.66 K/mm3 (0.10-0.90); Monocytes Percent Auto 9.3 % (2.0-11.0); Neutrophils Absolute Auto 4.1 K/mm3 (1.7-7.2); Neutrophils Percent Auto 57.2 % (50.0-70.0); Platelet Count Result 259 K/mm3 (150-420); Red Blood Count 4.92 M/mm3 (4.70-6.10); Red Cell Distribution Width 11.7 % (11.6-14.4); White Blood Count 7.1 K/mm3 (4.8-10.8)
[2023-09-07 12:43] LABS: Appearance Urine Clear (Clear); Bilirubin Urine Negative (Negative); Blood Urine 3+ (Negative); Color Urine Light Yellow (Yellow); Glucose Urine UA Negative (Negative); Ketones Urine Negative (Negative); Leukocyte Esterase Ur Negative LEU/UL (Negative); Nitrate Urine Negative (Negative); Protein Urine Negative (Negative); Specific Grav Ur <= 1.005 (1.010-1.020); Urobilinogen Urine 0.2 mg/dL (0.2-1.0)
[2023-09-07 12:49] LABS: Add Urine Microscopic? YES; Bacteria Urine Rare /hpf; WBC Urine None seen /hpf (0-3)
[2023-09-07 13:39] LABS: Alanine Aminotransferase 35 U/L (16-63); Albumin Level 4.2 g/dL (3.4-5.0); Alkaline Phosphatase 98 U/L (46-116); Anion Gap 9 mmol/L (8-16); Aspartate Amino Transferase 19 U/L (15-37); Bilirubin,Total 0.6 mg/dL (0.00-1.00); Blood Urea Nitrogen 11 mg/dL (7-18); Calcium 8.5 mg/dL (8.5-10.1); Carbon Dioxide 30 mmol/L (21-32); Chloride 99 mmol/L (98-108); Cholesterol 215 mg/dL (0-200); Estimated Glomerular Filt Rate > 60; Glucose 79 mg/dL (70-99); HDL Direct 67 mg/dL (40-60); LDL Cholesterol Calculated 132 mg/dL (<130); Osmolality Calculated 284 mOsm/kg (285-295); Potassium 3.6 mmol/L (3.5-5.1); Prostate Specific Antigen 1.6 ng/mL (< OR = 4.0); Sodium 138 mmol/L (136-145); Thyroid Stimulating Hormone 2.23 uIU/mL (0.36-3.74); Total Protein 7.9 g/dL (6.4-8.2); Triglycerides 81 mg/dL (0-150); Uric Acid 3.7 mg/dL (3.5-7.2); Vitamin B12 400 pg/mL (193-986)
[2023-09-07 13:41] LABS: CRP < 0.5 mg/dL (0.0-0.9)
[2023-09-09 15:20] LABS: Methylmalonic Acid 127 nmol/L (87-318)
[2023-09-10 14:47] LABS: ANCA Screen Negative (Negative)
== END 2023-09-07 12:24 | disposition home or self-care (01) ==
LOC: CHSLAB 12:27
PROVIDERS: PCP Internal Medicine; Visit Provider Internal Medicine
DX: Z00.00 Encounter for general adult medical examination without abnormal findings (principal); G62.9 Polyneuropathy, unspecified; M54.50 Low back pain, unspecified; M43.06 Spondylolysis, lumbar region
CPT/HCPCS: 36415; 72100; 80053; 80061; 81001; 82607; 83921; 84153; 84443; 84550; 85025; 86036; 86038; 86039; 86140; 86200; G0103

== ENCOUNTER 2023-09-20 22:22 | Emergency (ER) | payer OTHER, SELFPAY ==
[2023-09-20 22:24] VITALS: BP 150/95; PULSE 84; RESP 18; TEMP 36; O2SAT 98
--- NOTE | 2023-09-20 22:35 | ED.EXTPRO ---
HPI - Extremity Problem General Chief complaint: Extremity Problem,Nontraumatic Stated complaint: leg pain Source: patient Mode of arrival: ambulatory Limitations: no limitations History of Present Illness HPI Narrative: 53-year-old white male status post left hip replacement 10 days ago complains of bruising down his left leg with pain and tenderness and swelling of the thigh especially laterally along her lower left knee. He has a bruising down to his foot. Calf is nontender he is nontender below the knee. He is on aspirin no other blood thinners. Denies any problems breathing shortness of breath cough fever other swelling lumps or bumps other bleeding or bruising problems voiding or stooling runny nose sore throat rash or itching or any other complaints. Related Data Home Medications Medication Instructions Recorded Confirmed furosemide 20 mg tablet 20 mg PO DAILY 09/20/23 09/20/23 meloxicam 15 mg tablet 15 mg PO DAILY 09/20/23 09/20/23 pregabalin 75 mg capsule 75 mg PO DAILY 09/20/23 09/20/23 tramadol 50 mg tablet 50 mg PO PRN PRN Breakthrough Pain 09/20/23 09/20/23 Allergies Allergy/AdvReac Type Severity Reaction Status Date / Time No Known Allergies Allergy Verified 06/23/23 11:59 Review of Systems Review of Systems: All systems reviewed & are unremarkable except as noted in HPI and below PMFSH Past Medical History Medical History Diverticulosis GERD (gastroesophageal reflux disease) Obesity Osteoarthritis Surgical History Surgical History H/O left knee surgery History of eye surgery left History of shoulder surgery right Family History Family History Father Hypertension Mother Hypertension Diverticula, colon Social History Social History Smoking status: Never smoker Tobacco type: smokeless tobacco Smokeless tobacco user: chewing tobacco Alcohol intake: current Drinks per week: 6 Alcohol use details: socially Substance use: never Substance use type: does not use Do You Feel Safe in your Home?: No Lack of Transportation: No Lack of Food: Never True Current Housing: I Have Housing Concerned About Future Housing: No Difficulty Paying Gas/Electric Bills: No Difficulty Paying for Meds: No Currently Unemployed: No Education: Associate Degree Difficulty w/ Childcare or Family Care: No Living arrangements: with family Spiritual care concerns: No Comments Left hip surgery 10 days ago Exam Narrative: White male patient with no apparent distress.? Head normocephalic, atraumatic.? Eyes conjunctiva pink sclera nonicteric.? Extraocular movements are intact.? Ears externally normal.? Oropharynx is clear with moist mucous membranes without exudates.? Neck is supple nontender no lymphadenopathy.? Back is nontender.? Lungs are clear.? Heart is regular rate and rhythm without murmurs gallops or rubs.? Chest wall nontender.? Back is nontender. Abdomen is soft and nontender no hepatosplenomegaly or masses no CVA tenderness no abdominal bruits.? Extremities bruising of his left buttocks with bruising down the left thigh and calf and foot. Tenderness slight warmth laterally without erythema of his left knee. The joint is nontender there is no increased pain with range of motion of his left knee. There is no tenderness of his medial thigh.? Skin is warm and dry without rashes or lesions.? Neurological patient is alert and oriented x4.? Motor and sensory grossly intact.? Gait is normal. Course Vital Signs Vital signs: Vital Signs Temperature 36.0 C L 09/20/23 22:24 Pulse Rate 84 09/20/23 22:24 Respiratory Rate 18 09/20/23 22:24 Blood Pressure 150/95 H 09/20/23 22:24 Pulse Oximetry 98 09/20/23 22:24 Oxygen Deliver
[2023-09-20] MEDS: ENOXAPARIN 120 MG/0.8 ML SYRINGE SUB-Q (22:48)
[2023-09-20 23:12] LABS: Hematocrit 30.6 % (40.0-54.0); Hemoglobin 10.4 g/dL (14.0-18.0); Mean Corpuscular Hemoglobin 34.2 pg (27.0-31.0); Mean Corpuscular Volume 100.7 fL (78.0-102.0); Mean Platelet Volume 8.2 fl (8.7-11.0); Platelet Count Result 310 K/mm3 (150-420); Red Blood Count 3.04 M/mm3 (4.70-6.10); Red Cell Distribution Width 14.5 % (11.6-14.4)
[2023-09-20 23:22] LABS: Alanine Aminotransferase 53 U/L (16-63); Albumin Level 3.1 g/dL (3.4-5.0); Alkaline Phosphatase 104 U/L (46-116); Anion Gap 8 mmol/L (8-16); Aspartate Amino Transferase 33 U/L (15-37); Bilirubin,Total 0.8 mg/dL (0.00-1.00); Blood Urea Nitrogen 17 mg/dL (7-18); Calcium 8.3 mg/dL (8.5-10.1); Carbon Dioxide 29 mmol/L (21-32); Chloride 104 mmol/L (98-108); Estimated CRCL calculation 132 ml/min; Estimated Glomerular Filt Rate > 60; Glucose 91 mg/dL (70-99); Osmolality Calculated 293 mOsm/kg (285-295); Sodium 141 mmol/L (136-145); Total Protein 6.4 g/dL (6.4-8.2)
[2023-09-20 23:28] LABS: INR 0.9; Partial Thromboplastin Time 24.9 Sec (23.9-30.70); Prothrombin Time 10.3 Seconds (9.50-12.1)
[2023-09-20 23:34] LABS: D Dimer 4.31 mg/L (0.19-0.50)
[2023-09-26 05:04] LABS: Anti Cyclic Citrullinated Pept <16 Units (<20)
== END 2023-09-21 00:05 | disposition home or self-care (01) ==
PROVIDERS: Emergency Provider Emergency Medicine; PCP Internal Medicine
DX: I82.402 Acute embolism and thrombosis of unspecified deep veins of left lower extremity (principal); Z79.899 Other long term (current) drug therapy; Z79.1 Long term (current) use of non-steroidal anti-inflammatories (NSAID); Z79.891 Long term (current) use of opiate analgesic
CPT/HCPCS: 36415; 80053; 85027; 85380; 85610; 85730; 86200; 96372; 99283; J1650

== ENCOUNTER 2023-09-21 07:59 | Outpatient (CLI) | payer OTHER, SELFPAY ==
--- NOTE | ~2023-09-21 | US_ITS ---
EXAMINATION: US venous doppler [facility] DATE: 09/21/2023 08:52 INDICATION: Left lower limb pain and swelling post recent hip surgery. TECHNIQUE: Grayscale ultrasound images without and with compression and Doppler ultrasound images of the left lower extremity veins were obtained. COMPARISON: None. FINDINGS: The visualized portions of left common femoral vein, profunda (deep) femoral vein, femoral vein, popl iteal vein, peroneal veins, posterior tibial veins, gastrocnemius vein and greater saphenous vein out flow are patent. IMPRESSION: 1. No deep venous thrombosis in the left lower limb. Reviewed, dictated and finalized at location A.
== END 2023-09-21 08:00 | disposition home or self-care (01) ==
PROVIDERS: PCP Internal Medicine; Visit Provider Emergency Medicine
DX: M79.605 Pain in left leg (principal); M79.89 Other specified soft tissue disorders
CPT/HCPCS: 93971

== ENCOUNTER 2023-12-17 11:03 | Outpatient (CLI) | payer OTHER, SELFPAY ==
[2023-12-17 11:18] LABS: Basophils Absolute Auto 0.04 K/mm3 (0.00-0.10); Basophils Percent Auto 0.6 % (0.0-1.0); Eosinophils Absolute Auto 0.62 K/mm3 (0.02-0.50); Eosinophils Percent Auto 9.9 % (1.0-6.0); Hematocrit 46.2 % (40.0-54.0); Hemoglobin 15.5 g/dL (14.0-18.0); Immature Granulocyte Absolute 0.01 K/mm3 (0.00-0.00); Immature Granulocyte Percent A 0.2 % (0.0-0.0); Lymphocytes Absolute Auto 1.68 K/mm3 (1.10-4.50); Lymphocytes Percent Auto 26.9 % (18.0-42.0); Mean Corpuscular HGB Conc 33.5 g/dL (32-36); Mean Corpuscular Hemoglobin 32.5 pg (27.0-31.0); Mean Corpuscular Volume 96.9 fL (78.0-102.0); Mean Platelet Volume 8.4 fl (8.7-11.0); Monocytes Absolute Auto 0.58 K/mm3 (0.10-0.90); Monocytes Percent Auto 9.3 % (2.0-11.0); Neutrophils Absolute Auto 3.31 K/mm3 (1.70-7.20); Neutrophils Percent Auto 53.1 % (50.0-70.0); Platelet Count Result 228 K/mm3 (150-420); Red Blood Count 4.77 M/mm3 (4.70-6.10); Red Cell Distribution Width 11.4 % (11.6-14.4); Reticulocyte Hemoglobin Conten 36.9 pg (28.0-35.0); Reticulocytes Absolute 0.05 M/mm3 (0.02-0.10); White Blood Count 6.2 K/mm3 (4.8-10.8)
[2023-12-17 12:11] LABS: Ferritin 345 ng/mL (26-388)
== END 2023-12-17 11:04 | disposition home or self-care (01) ==
LOC: CHSLAB 11:05
PROVIDERS: PCP Internal Medicine; Visit Provider Internal Medicine
DX: D64.9 Anemia, unspecified (principal)
CPT/HCPCS: 36415; 82728; 85025; 85046

== ENCOUNTER 2024-05-31 09:08 | Outpatient (CLI) | payer OTHER, SELFPAY ==
--- NOTE | ~2024-05-31 | XR_ITS ---
3 VIEWS LUMBAR SPINE Ordering provider: Jesus Clements MD History: . BACK PAIN x 1 week prev hip surgery pt states his back pain . Comparison: None. FINDINGS: VERTEBRAL BODIES: No visible fracture or subluxation. DISK SPACES: Slight narrowing of the disc L5-S1. SOFT TISSUES: Normal. IMPRESSION: No acute osseous abnormality lumbar spine. Slight narrowing of the disc L5-S1. Reviewed, dictated and finalized at location A. ECTOR PRECISION
== END 2024-05-31 09:09 | disposition home or self-care (01) ==
LOC: CHSIMG 09:09
PROVIDERS: PCP Internal Medicine; Visit Provider Internal Medicine
DX: M54.50 Low back pain, unspecified (principal)
CPT/HCPCS: 72100

== ENCOUNTER 2024-09-15 07:20 | Outpatient (CLI) | payer OTHER, SELFPAY ==
--- NOTE | ~2024-09-15 | CT_ITS ---
CT of the Abdomen and Pelvis: Indication: Mesenteric lymphadenitis Technique: 2.5 mm axial scans were obtained through the abdomen and pelvis following intravenous adm inistration of 100 cc of Omnipaque 350. Dose reduction technique was used on this scan by utilizing a utomated exposure control and iterative reconstruction technique. The dose-length product (DLP) was 1 631.45 mGy-cm. COMPARISON: 06/08/2023 Findings: Scans through the lung bases demonstrates stable subcentimeter right basilar pulmonary nod ules. The liver, spleen, pancreas, gallbladder, adrenals and kidneys are within normal limits. No evidence of aortic aneurysm. No lymphadenopathy. No bowel obstruction or bowel wall thickening. There is no evidence to suggest acute appendicitis. Images through the pelvis were performed. Urinary bladder unremarkable. Prostate gland enlarged. No a scites. Impression: Enlarged prostate gland. Stable subcentimeter right basilar pulmonary nodules. Reviewed, dictated and finalized at [facility]. Impression: Enlarged prostate gland. Stable subcentimeter right basilar pulmonary nodules.
--- OUTSIDE RECORDS SUMMARY | 2024-09-15 07:27 | XMS_ITS | Referral Summary ---
Author Organization [facility] Main [place] Address [address] [place] [address] Care Team Providers Care Railroad Car Repair Supervisor Name Role Phone Jesus Clements MD Primary Care Provider [phone] Allergies No known active allergies Medications ergocalciferol (VITAMIN D) 50,000 unit capsule TAKE 1 CAP 2 X A WEEK FOR 8 WEEKS THEN FOLLOW UP WITH YOUR PCP. 16 capsule 09/02/2023 Active traMADoL (ULTRAM) 50 mg tablet Take 1 tablet (50 mg total) by mouth every 8 (eight) hours as needed for pain 40 tablet 09/10/2023 Active oxyCODONE (ROXICODONE) 5 mg immediate release tabletIndicatio ns:Pain Take 1 tablet (5 mg total) by mouth every 4 (four) hours as needed for pain (breakthrough ) 30 tablet 09/10/2023 Active pregabalin (LYRICA) 75 mg capsuleIndicati ons:Postoperati ve Acute Pain Take 1 capsule (75 mg total) by mouth 2 (two) times a day for 14 days 28 capsule 09/10/2023 Active aspirin 81 mg enteric coated tabletIndicatio ns:Deep Vein Thrombosis Prevention Take 1 tablet (81 mg total) by mouth 2 (two) times a day 60 tablet 09/10/2023 Active acetaminophen 500 mg capsuleIndicati ons:Pain Take 2 capsules (1,000 mg total) by mouth every 8 (eight) hours 90 tablet 09/10/2023 Active senna-docusate (PERICOLACE) 8.6-50 mgIndications:c onstipation Take 2 tablets by mouth 2 (two) times a day 80 tablet 09/10/2023 Active meloxicam (MOBIC) 15 mg tabletIndicatio ns:Pain Take 1 tablet (15 mg total) by mouth daily 30 tablet 09/11/2023 Active furosemide (LASIX) 20 mg tabletIndicatio ns:Swelling of limb Take 1/2 tablet (10 mg) a day for 10 days 5 tablet 09/15/2023 Active amoxicillin 500 mg tablet/capsuleI ndications:Prop hylaxis, Medical TAKE 4 PILL 1 HOUR BEFORE DENTAL APPOINTMENT. 4 tablet/capsul e 3 03/18/2024 Active Active Problems Problem Noted Date Diagnosed Date Hip osteoarthritis 09/10/2023 Risk factors for obstructive sleep apnea 024 Primary osteoarthritis of left hip 06/01/2023 Chronic allergic conjunctivitis 03/15/2018 Notalgia 09/20/2014 Paresthesia of foot 04/18/2014 Osteoarthritis of cervical spine 04/18/2014 Closed posterior dislocation of humerus 07/18/19 14 Adhesive capsulitis of shoulder 09/27/2012 Complete tear of rotator cuff 09/27/2012 Subdeltoid bursitis 06/21/2012 Aphakia 04/05/2012 Superior glenoid labrum lesion of shoulder 04/05 Osteoarthritis of knee 04/18/2011 Arthralgia of shoulder 04/18/2011 Immunizations Immunization Administration Dates Next Due Influenza, Quadrivalent, Spl it, Preservative Free, Intramuscular 07/30/2019,03/29/2018 Influenza, Trivalent, IM (MDV) 04/06/2014 Tdap 06/15/2018 Social History Tobacco Use Types Packs/Day Years Used Date Smoking Tobacco: Never Smokeless Tobacco: Former Quit: 07/2023 Tobacco Cessation:Counseling Given: Not Answered AUDIT-C Answer Date Recorded Q1: How often do you have a drink containing alc ohol? 2-4 times a month 09/10/2023 Q2: How many drinks containi ng alcohol do you have on a typical day when you are drinking? 1 or 2 09/10/2023 Frequency of Binge Drinking Not on file 01/2024 Personal Safety Answer Date Recorded Have you ever been in or are you currently in a harmful physical or emotional relationship or is someone making you feel afraid or unsafe? Denies 09/10/2023 Sex and Gender Information Value Date Recorded Sex Assigned at Not on file Legal Sex Male 12:25 AM INSPECTOR PLUMBING Gender Identity Not on file Sexual Orientation Not on file Last Filed Vital Signs Vital Sign Reading Time Taken Comments Blood Pressure 116/78 09/11/2023 7:47 AM INSPECTOR PLUMBING Pulse 87 09/11/2023 7:47 AM INSPECTOR PLUMBING Temperature 35.9 C (96.7 F) 09/11/2023 7:47 AM INSPECTOR PLUMBING Respiratory Rate 16 09/11/2023 7:47 AM INSPECTOR PLUMBING Oxygen Saturation 97% 09/11/2023 7:47 AM INSPECTOR PLUMBING Inhaled Oxygen Concentration - - Weight 131.8 kg (290 lb 9.6 oz) 09/10/2023 6:00 AM INSPECTOR PLUMBING Height 188 cm (6' 2 ) 09/10/2023 6:00 AM INSPECTOR PLUMBING Body Mass Index 37.31 09/10/2023 6:00 AM INSPECTOR PLUMBING Plan of Treatment Not on file Medical Devices Implanted Type Area Design Specialist Device Identifier Shelf Expiration Date Model / Serial / Lot [employer]uy [employer] Bi Mentum 53mm Press Fit Femoral Proximal Cup Acetabular [id number] - Sna - [id number] Implanted:Qty: 1 on 09/10/2023 by Rich Smith MD at [facility] Other - see comments Left: Hip [employer] 09/03/2027 [id number] / NA / [id number] Description:Implant pause pe rformed. [employer] Liner Acet Hip Size 28 Poly Bi Mentum Altrx 53mm [id number] - Sna - [id number] Implanted:Qty: 1 on 09/10/2023 by Rich Smith MD at [facility] Other - see comments Left: Hip [employer] [id number] 04/04/2027 [id number] / NA / [id number] Description:Implant pause pe rformed. [employer] Articul/Mihir 28mm Cementless Hip +1.5mm 12/14 Taper Head Femoral Latex Free [id number] - Sna - [id number] Implanted:Qty: 1 on 09/10/2023 by Rich Smith MD at [facility] Other - see comments Left: Hip [employer] [id number] 02/03/2028 [id number] / NA / [id number] Description:Implant pause pe rformed. [employer] Actis L111 Mm Collar Hip 8 High Offset Stem Femoral [id number] - Sna - [id number] Implanted:Qty: 1 on 09/10/2023 by Rich Smith MD at [facility] Other - see comments Left: Hip [employer] [id number] 04/04/2033 [id number] / NA / [id number] Description:Implant pause pe rformed. Insurance CIG[employer] CIGNA Advance Directives For more information, please contact: [phone] * Full Code (Latest Code Status on File) Date Activated Date Inactivated Comments 09/10/2023 9:26 AM 09/11/2023 2:44 PM Care Teams Railroad Car Repair Supervisor Relationship Specialty Start Date End Date Jesus Clements MD PCP - General 03/24/17
--- OUTSIDE RECORDS SUMMARY | 2024-09-15 07:27 | XMS_ITS | Clinical Summary ---
Author Organization [facility] Address [address] [place] [address] Care Team Providers Care Senior Information Systems Architect Name Role Phone Jesus Clements MD Primary Care Provider [phone] Arlyn Viera MD Unavailable Allergies No known active allergies Medications aspirin EC (ECOTRIN) 81 MG tablet Take 1 tablet (81 mg total) by mouth daily. Active metoprolol tartrate (LOPRESSOR) 25 MG tablet Take 1 tablet (25 mg total) by mouth daily as needed. 30 tablet 11 2024 Active Active Problems No known active problems Family History Medical History Relation Comments Atrial fibrillation Father Relation Status Comments Father Social History Tobacco Use Types Packs/Day Years Used Date Smoking Tobacco: Never Smokeless Tobacco: Former Chew Tobacco Cessation:Counseling Given: Not Answered Alcohol Use Standard Drinks/Week Comments Yes 0 (1 standard drink = 0.6 oz pur e alcohol) social Sex and Gender Information Value Date Recorded Sex Assigned at Not on file Legal Sex Male 5:43 PM MEDICAL BILLING MANAGER Gender Identity Not on file Sexual Orientation Not on file Last Filed Vital Signs Vital Sign Reading Time Taken Comments Blood Pressure 138/80 2024 9:39 AM MEDICAL BILLING MANAGER Pulse 65 2024 9:39 AM MEDICAL BILLING MANAGER Temperature - - Respiratory Rate 18 2024 9:39 AM MEDICAL BILLING MANAGER Oxygen Saturation 97% 2024 9:39 AM MEDICAL BILLING MANAGER Inhaled Oxygen Concentration - - Weight 129.7 kg (286 lb) 2024 9:39 AM MEDICAL BILLING MANAGER Height 188 cm (6' 2 ) 2024 9:39 AM MEDICAL BILLING MANAGER Body Mass Index 36.72 2024 9:39 AM MEDICAL BILLING MANAGER Plan of Treatment Upcoming Encounters Date Type Department Care Team (Late st Contact Info) Description 06/13/2025 10:00 AM MEDICAL BILLING MANAGER Appointment [facility] Non Invasive Cardiology - [facility] [address] [place] [address] Arlyn Viera MD [address] [place] [address] 06/13/2025 11:15 AM MEDICAL BILLING MANAGER Office Visit [facility] [address] [place] [address] Arlyn Viera MD [address] [place], [place] [id number] Health Maintenance Due Date Last Done Comments Colorectal Cancer Screening Colonoscopy (10 Years) 1969 Annual Physical 1972 Pneumococcal Vaccine: Pediatrics (0 to 5 Years) and At-Risk Patients (6 to 64 Years) (1 of 2 - PCV) 1975 Hepatitis C 1987 Hepatitis B Vaccines (1 of 3 - 19+ 3-dose series) 1988 Zoster Vaccines (1 of 2) 2019 COVID-19 Vaccine ( - season) 2024 06/22/2021, 10/11/2020 Influenza Adult (#1) 2024 06/17/2021, 07/30/2019, 03/29/2018, Additional history exists DTaP, Tdap and Td Vaccines (2 - Td or Tdap) 06/15/2028 06/15/2018 Meningococcal B Vaccine Aged Out No l onger eligible based on patient's age to complete this topic Meningococcal Vaccine Aged Out No anna zoraida eligible based on patient's age to complete this topic RSV Immunizations Under 20 Months Aged Out No longer eligible based on patient's age to complete this topic Insurance [facility] Care Teams Senior Information Systems Architect Relationship Specialty Start Date End Date Jesus Clements MD [address] [place] [address] PCP - General INTERNAL MEDICINE 08/02/19 Arlyn Viera MD [address] [place] [address] Consulting Physician CARDIOVASCULAR DISEASE 12/22/22
--- OUTSIDE RECORDS SUMMARY | 2024-09-15 07:27 | XMS_ITS | Clinical Summary ---
Author Organization [facility] Main [place] Address [address] [place] [address] Care Team Providers Care Inventory Taker Name Role Phone Jesus Clements MD Primary Care Provider [phone] Allergies No known active allergies Medications ergocalciferol [...] Influenza, Trivalent, IM (MDV) 04/06/2014 Tdap 06/15/2018 Surgical History Surgery Date Site/Laterality Comments RETINAL DETACHMENT SURGERY FLUORO GUIDED ASPIRATION OR INJECTION LARGE JOINT LEFT 08/15/2022 Left LITHOTRIPSY 07/02/2023 ROTATOR CUFF REPAIR Right Medical History Medical History Date Comments Arthritis Nephrolithiasis Family History Medical History Relation Name Comments Arthritis Father Family history of arthritis - (Added by TW Conv) Hypertension Father Family history of hypertension - (Added by DEBBY Conv) Anesthesia problems Neg Hx Relation Name Status Comments Father Social History Tobacco Use [...] on file Legal Sex Male 12:25 AM MOP MACHINE OPERATOR Gender Identity Not on file Sexual Orientation Not on file Obstetrics History Last Filed Vital Signs Vital Sign Reading Time Taken Comments Blood Pressure 116/78 09/11/2023 7:47 AM MOP MACHINE OPERATOR Pulse 87 09/11/2023 7:47 AM MOP MACHINE OPERATOR Temperature 35.9 C (96.7 F) 09/11/2023 7:47 AM MOP MACHINE OPERATOR Respiratory Rate 16 09/11/2023 7:47 AM MOP MACHINE OPERATOR Oxygen Saturation 97% 09/11/2023 7:47 AM MOP MACHINE OPERATOR Inhaled Oxygen Concentration - - Weight 131.8 kg (290 lb 9.6 oz) 09/10/2023 6:00 AM MOP MACHINE OPERATOR Height 188 cm (6' 2 ) 09/10/2023 6:00 AM MOP MACHINE OPERATOR Body Mass Index 37.31 09/10/2023 6:00 AM MOP MACHINE OPERATOR Plan of Treatment Health Maintenance Due Date Last Done Comments Colon Cancer Screening-Colonoscopy 1969 Depression Screening 1969 Hepatitis C Screening 1969 Prostate Cancer Screening-PSA 1969 Hepatitis B Screening 1987 Regular Well Visit/Exam 18-64 1987 Zoster Vaccine (1 of 2) 2019 Influenza Vaccine (#1) 2024 0, 03/29/2018, 04/06/2014 DTaP/Tdap/Td Vaccine (2 - Td or Tdap) 06/15/2028 06/15/2018 Pneumococcal vaccine <65 Aged Out No longer eligible based on patient's age to complete this topic Medical Devices Implanted Type Area Councilor Device Identifier Shelf Expiration Date Model / Serial / Lot DepRetAPPs Orthopaedics Inc Bi Mentum 53mm Press Fit Femoral Proximal Cup Acetabular [id number] - Sna - [id number] Implanted:Qty: 1 on 09/10/2023 by Rich Smith MD at [facility] Other - see comments Left: Hip [employer] 09/03/2027 [id number] / NA / [id number] Description:Implant pause pe rformed. [employer] Liner Acet Hip Size 28 Poly Bi Mentum Altrx 53mm [id number] - Sna - [id number] Implanted:Qty: 1 on 09/10/2023 by Rich Smith MD at [facility] Other - see comments Left: Hip [employer] [id number] 04/04/2027 [id number] / NA / [id number] Description:Implant pause pe rformed. [employer] Articul/Mihir 28mm Cementless Hip +1.5mm 12/14 Taper Head Femoral Latex Free [id number] - Sna - [id number] Implanted:Qty: 1 on 09/10/2023 by Rich Smith MD at [facility] Other - see comments Left: Hip [employer] [id number] 02/03/2028 [id number] / NA / [id number] Description:Implant pause pe rformed. [employer] Actis L111 Mm Collar Hip 8 High Offset Stem Femoral [id number] - Sna - [id number] Implanted:Qty: 1 on 09/10/2023 by Rich Smith MD at [facility] Other - see comments Left: Hip [employer] [id number] 04/04/2033 [id number] / NA / [id number] Description:Implant pause pe rformed. [facility] Advance Directives For more information, please contact: [phone] * Full Code (Latest Code Status on File) Date Activated Date Inactivated Comments 09/10/2023 9:26 AM 09/11/2023 2:44 PM Care Teams Inventory Taker Relationship Specialty Start Date End Date Jesus Clements MD PCP - General 03/24/17
[2024-09-15 08:35] LABS: Hematocrit 42.4 % (40.0-54.0); Hemoglobin 14.3 g/dL (14.0-18.0); Mean Corpuscular HGB Conc 33.7 g/dL (32-36); Mean Corpuscular Hemoglobin 33.1 pg (27.0-31.0); Mean Corpuscular Volume 98.1 fL (78.0-102.0); Mean Platelet Volume 8.6 fl (8.7-11.0); Platelet Count Result 268 K/mm3 (150-420); Red Blood Count 4.32 M/mm3 (4.70-6.10); Red Cell Distribution Width 11.6 % (11.6-14.4); White Blood Count 5.5 K/mm3 (4.8-10.8)
[2024-09-15 09:41] LABS: Alanine Aminotransferase 36 U/L (16-63); Albumin Level 3.7 g/dL (3.4-5.0); Alkaline Phosphatase 99 U/L (46-116); Anion Gap 9 mmol/L (4-12); Aspartate Amino Transferase 17 U/L (15-37); Bilirubin,Total 0.9 mg/dL (0.00-1.00); Blood Urea Nitrogen 21 mg/dL (7-18); Calcium 8.8 mg/dL (8.5-10.1); Carbon Dioxide 27 mmol/L (21-32); Chloride 106 mmol/L (98-108); Cholesterol 193 mg/dL (0-200); Estimated Glomerular Filt Rate > 60; Free T4 Free Thyroxine 1.05 ng/dL (0.76-1.46); Glucose 82 mg/dL (70-99); HDL Direct 47 mg/dL (40-60); LDL Cholesterol Calculated 136 mg/dL (<130); Osmolality Calculated 296 mOsm/kg (285-295); Sodium 142 mmol/L (136-145); Thyroid Stimulating Hormone 1.46 uIU/mL (0.36-3.74); Triglycerides 50 mg/dL (0-150)
[2024-09-15 10:28] LABS: Prostate Specific Antigen 1.7 ng/mL (< OR = 4.0)
== END 2024-09-15 07:21 | disposition home or self-care (01) ==
LOC: CHSIMG 07:23
PROVIDERS: PCP Internal Medicine; Visit Provider Nurse Practitioner Family
DX: I88.0 Nonspecific mesenteric lymphadenitis (principal); E66.812 Obesity, class 2; Z13.6 Encounter for screening for cardiovascular disorders; N40.0 Benign prostatic hyperplasia without lower urinary tract symptoms; R91.8 Other nonspecific abnormal finding of lung field
CPT/HCPCS: 36415; 74177; 80053; 80061; 84153; 84439; 84443; 85027; Q9967

== ENCOUNTER 2025-02-10 14:01 | Outpatient (CLI) | payer OTHER, SELFPAY ==
--- OUTSIDE RECORDS SUMMARY | 2025-02-10 14:04 | XMS_ITS | Patient Health Record ---
Author Organization [facility] Address [address] [place], [place] [id number] Care Team Providers Care Family Development Specialist Name Role Phone NEGRITA ZAVALA Unavailable [phone] Jesus Clements Unavailable Unavailable Reason For Referral No Information Plan Of Treatment No Information Insurance Providers Payer Name Payer Address Payer Phone Subscriber Number Group Number Insured Name Patient Relationship to Insured Coverage Start Date Coverage End Date [facility] [address] [place] [address] [id number] ALLYSSA LEE Self - patient is the insured
--- OUTSIDE RECORDS SUMMARY | 2025-02-10 14:04 | XMS_ITS | Clinical Summary ---
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 Gender Identity Not on file Sexual Orientation Not on file Last Filed Vital Signs Vital Sign Reading Time Taken Comments Blood Pressure 138/80 2024 9:39 AM COMMERCIAL GREEN RETROFIT ARCHITECT Pulse 65 2024 9:39 AM COMMERCIAL GREEN RETROFIT ARCHITECT Temperature - - Respiratory Rate 18 2024 9:39 AM COMMERCIAL GREEN RETROFIT ARCHITECT Oxygen Saturation 97% 2024 9:39 AM COMMERCIAL GREEN RETROFIT ARCHITECT Inhaled Oxygen Concentration - - Weight 129.7 kg (286 lb) 2024 9:39 AM COMMERCIAL GREEN RETROFIT ARCHITECT Height 188 cm (6' 2) 2024 9:39 AM COMMERCIAL GREEN RETROFIT ARCHITECT Body Mass Index 36.72 2024 9:39 AM COMMERCIAL GREEN RETROFIT ARCHITECT Plan of Treatment Upcoming Encounters Date Type Department Care Team (Late st Contact Info) Description 06/13/2025 10:00 AM COMMERCIAL GREEN RETROFIT ARCHITECT Appointment [facility] Non Invasive Cardiology - [facility] [address] [place] [address] Arlyn Viera MD [address] [place] [address] 06/13/2025 11:15 AM COMMERCIAL GREEN RETROFIT ARCHITECT Office Visit [facility] [address] [place] [address] Arlyn Viera MD [address] [place], [place] [id number] Health Maintenance Due Date Last Done Comments Colorectal Cancer Screening Colonoscopy (10 Years) 1969 Annual Physical 1972 Hepatitis C 1987 Hepatitis B Vaccines (1 of 3 - 19+ 3-dose series) 1988 Pneumococcal Vaccine: 50+ Years (1 of 2 - PCV) 1988 Zoster Vaccines (1 of 2) 2019 COVID-19 Vaccine (3 - 2023-2 5 season) 2024 06/22/2021, 10/11/2020 DTaP, Tdap and Td Vaccines ( 2 - Td or Tdap) 06/15/2028 06/15/2018 Meningococcal B Vaccine Aged Out No l onger eligible based on patient's age to complete this topic Meningococcal Vaccine Aged Out No anna zoraida eligible based on patient's age to complete this topic RSV Immunizations Under 20 Months Aged Out No longer eligible b ased on patient's age to complete this topic Insurance [employer] Care Teams Registered Nurse Cardiovascular Icu Relationship Specialty Start Date End Date Jesus Clements MD [address] [place] [address] PCP - General INTERNAL MEDICINE 08/02/19 Arlyn Viera MD [address] [place], [place] [address] Consulting Physician CARDIOVASCULAR DISEASE 12/22/22
--- OUTSIDE RECORDS SUMMARY | 2025-02-10 14:04 | XMS_ITS | Clinical Summary ---
Author Organization [facility] Main [place] Address [address] [place] [address] Care Team Providers Care Loading And Unloading Supervisor Name Role Phone Jesus Clements MD Primary Care Provider [phone] Allergies No known active allergies Medications ergocalciferol [...] on file Legal Sex Male 12:25 AM SOCIAL DIRECTOR Gender Identity Not on file Sexual Orientation Not on file Obstetrics History Last Filed Vital Signs Vital Sign Reading Time Taken Comments Blood Pressure 116/78 09/11/2023 7:47 AM SOCIAL DIRECTOR Pulse 87 09/11/2023 7:47 AM SOCIAL DIRECTOR Temperature 35.9 C (96.7 F) 09/11/2023 7:47 AM SOCIAL DIRECTOR Respiratory Rate 16 09/11/2023 7:47 AM SOCIAL DIRECTOR Oxygen Saturation 97% 09/11/2023 7:47 AM SOCIAL DIRECTOR Inhaled Oxygen Concentration - - Weight 131.8 kg (290 lb 9.6 oz) 09/10/2023 6:00 AM SOCIAL DIRECTOR Height 188 cm (6' 2) 09/10/2023 6:00 AM SOCIAL DIRECTOR Body Mass Index 37.31 09/10/2023 6:00 AM SOCIAL DIRECTOR Plan of Treatment Health Maintenance Due Date Last Done Comments Colon Cancer Screening-Colonoscopy 1969 Depression Screening 1969 Hepatitis C Screening 1969 Prostate Cancer Screening-PSA 1969 Hepatitis B Screening 1987 Regular Well Visit/Exam 18-64 1987 Zoster Vaccine (1 of 2) 2019 Influenza Vaccine (#1) 2025 0, 03/29/2018, 04/06/2014 DTaP/Tdap/Td Vaccine (2 - Td or Tdap) 06/15/2028 06/15/2018 Pneumococcal vaccine <65 Aged Out No longer eligible based on patient's age to complete this topic Medical Devices Implanted Type Area Fountain Brush Assembler Device Identifier Shelf Expiration Date Model / Serial / Lot DepJ C [employer] Bi Mentum 53mm Press Fit Femoral Proximal Cup Acetabular [id number] - Sna - [id number] Implanted:Qty: 1 on 09/10/2023 by Rich Smith MD at [facility] Other - see comments Left: Hip [employer] 09/03/2027 [id number] / NA / [id number] Description:Implant pause pe rformed. [employer] Liner Acet Hip Size 28 Poly Bi Mentum Altrx 53mm [id number] - Sna - [id number] Implanted:Qty: 1 on 09/10/2023 by Rich Smith MD at [facility] Other - see comments Left: Hip [employer] [id number] 04/04/2027 [id number] / NA / [id number] Description:Implant pause pe rformed. [employer] Articul/Mihir 28mm Cementless Hip +1.5mm 12/14 Taper Head Femoral Latex Free [id number] - Sna - [id number] Implanted:Qty: 1 on 09/10/2023 by Rich Smith MD at [facility] Other - see comments Left: Hip [employer] [id number] 02/03/2028 [id number] / NA / [id number] Description:Implant pause pe rformed. [employer] Actis L111 Mm Collar Hip 8 High Offset Stem Femoral [id number] - Sna - [id number] Implanted:Qty: 1 on 09/10/2023 by Rich Smith MD at [facility] Other - see comments Left: Hip [employer] [id number] 04/04/2033 [id number] / NA / [id number] Description:Implant pause pe rformed. Insurance [facility] [employer] Advance Directives For more information, please contact: [phone] * Full Code (Latest Code Status on File) Date Activated Date Inactivated Comments 09/10/2023 9:26 AM 09/11/2023 2:44 PM Care Teams Loading And Unloading Supervisor Relationship Specialty Start Date End Date Jesus Clements MD PCP - General 03/24/17
[2025-02-10 14:33] LABS: Hematocrit 45.5 % (40.0-54.0); Hemoglobin 15.1 g/dL (14.0-18.0); Mean Corpuscular HGB Conc 33.2 g/dL (32-36); Mean Corpuscular Hemoglobin 33.3 pg (27.0-31.0); Mean Corpuscular Volume 100.2 fL (78.0-102.0); Platelet Count Result 241 K/mm3 (150-420); Red Blood Count 4.54 M/mm3 (4.70-6.10); White Blood Count 7.8 K/mm3 (4.8-10.8)
[2025-02-10 14:41] LABS: Add Urine Microscopic? YES; Appearance Urine Clear (Clear); Glucose Urine UA Negative (Negative); Leukocyte Esterase Ur Negative (Negative); Nitrate Urine Negative (Negative); Specific Grav Ur >= 1.030 (1.010-1.020)
[2025-02-10 14:57] LABS: Alanine Aminotransferase 24 U/L (6-50); Albumin Level 4.6 g/dL (3.5-5.1); Alkaline Phosphatase 73 U/L (38-126); Anion Gap 8 mmol/L (4-12); Aspartate Amino Transferase 28 U/L (17-59); Bilirubin,Total 0.8 mg/dL (0.2-1.3); Blood Urea Nitrogen 26 mg/dL (9-20); Calcium 9.7 mg/dL (8.4-10.2); Carbon Dioxide 26 mmol/L (22-30); Chloride 107 mmol/L (98-107); Estimated Glomerular Filt Rate > 60; Glucose 92 mg/dL (65-110); Osmolality Calculated 296 mOsm/kg (285-295); Potassium 4.2 mmol/L (3.4-5.0); Sodium 141 mmol/L (137-145); Total Protein 7.5 g/dL (6.3-8.2)
== END 2025-02-10 14:02 | disposition home or self-care (01) ==
LOC: CHSLAB 14:03
PROVIDERS: PCP Internal Medicine; Visit Provider Internal Medicine
DX: Z71.3 Dietary counseling and surveillance (principal)
CPT/HCPCS: 36415; 80053; 81001; 85027

== ENCOUNTER 2025-04-11 10:05 | Outpatient (CLI) | payer OTHER, SELFPAY ==
--- NOTE | ~2025-04-11 | XR_ITS ---
Abdominal radiograph(s) INDICATION: Kidney stone COMPARISON: CT 09/15/2024 TECHNIQUE: 2 views supine abdomen FINDINGS: Lung bases clear. Scattered colonic gas and stool. Small bowel loops not well seen. No evidence of organomegaly. No abnormal abdominal calcifications. No acute bony abnormality. IMPRESSION: 1. No nephroureteral calculi identified. Reviewed, dictated and finalized at location [facility].
--- OUTSIDE RECORDS SUMMARY | 2025-04-11 10:53 | XMS_ITS | Clinical Summary ---
Author Organization 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 Gender Identity Not on file Sexual Orientation Not on file Last Filed Vital Signs Vital Sign Reading Time Taken Comments Blood Pressure 138/80 2024 9:39 AM FUR BLOWING MACHINE ATTENDANT Pulse 65 2024 9:39 AM FUR BLOWING MACHINE ATTENDANT Temperature - - Respiratory Rate 18 2024 9:39 AM FUR BLOWING MACHINE ATTENDANT Oxygen Saturation 97% 2024 9:39 AM FUR BLOWING MACHINE ATTENDANT Inhaled Oxygen Concentration - - Weight 129.7 kg (286 lb) 2024 9:39 AM FUR BLOWING MACHINE ATTENDANT Height 188 cm (6' 2) 2024 9:39 AM FUR BLOWING MACHINE ATTENDANT Body Mass Index 36.72 2024 9:39 AM FUR BLOWING MACHINE ATTENDANT Plan of Treatment Upcoming Encounters Date Type Department Care Team (Late st Contact Info) Description 06/13/2025 10:00 AM FUR BLOWING MACHINE ATTENDANT Appointment [facility] Non Invasive Cardiology - [facility] [address] [place] [address] Arlyn Viera MD [address] [place] [address] 06/13/2025 11:15 AM FUR BLOWING MACHINE ATTENDANT Office Visit [facility] el[facility] [address] [place] [address] Arlyn Viera MD [address] [place], [place] [address] Health Maintenance Due Date Last Done Comments Colorectal Cancer Screening Colonoscopy (10 Years) 1969 Annual Physical 1972 Hepatitis C 1987 Hepatitis B Vaccines (1 of 3 - 19+ 3-dose series) 1988 Pneumococcal Vaccine: 50+ Years (1 of 2 - PCV) 1988 Zoster Vaccines (1 of 2) 2019 COVID-19 Vaccine (3 - 2024-2 6 season) 2025 06/22/2021, 10/11/2020 DTaP, Tdap and Td Vaccines [...] complete this topic Insurance [employer] Care Teams Wood Gouger Relationship Specialty Start Date End Date Jesus Clements MD [address] [place] [address] PCP - General INTERNAL MEDICINE 08/02/19 Arlyn Viera MD [address] [place], [place] [address] Consulting Physician CARDIOVASCULAR DISEASE 12/22/22
--- OUTSIDE RECORDS SUMMARY | 2025-04-11 10:53 | XMS_ITS | Patient Health Record ---
Author Organization [facility] Address [address] [place], [place] [id number] Care Team Providers Care Cardiac Nurse Practitioner Name Role Phone NEGRITA ZAVALA Unavailable [phone] Jesus Clements Unavailable Unavailable Reason For Referral No Information Plan Of Treatment No Information Insurance Providers Payer Name Payer Address Payer Phone Subscriber Number Group Number Insured Name Patient Relationship to Insured Coverage Start Date Coverage End Date [facility] [address] [place] [address] [id number] ALLYSSA LEE Self - patient is the insured
--- OUTSIDE RECORDS SUMMARY | 2025-04-11 10:54 | XMS_ITS | Clinical Summary ---
Author Organization [facility] Main [place] Address [address] [place] [address] Care Team Providers Care Telecommunications Manager Name Role Phone Jesus Clements MD Primary Care Provider [phone] Allergies No known active allergies Medications ergocalciferol [...] on file Legal Sex Male 12:25 AM EDGING CATCHER Gender Identity Not on file Sexual Orientation Not on file Obstetrics History Last Filed Vital Signs Vital Sign Reading Time Taken Comments Blood Pressure 116/78 09/11/2023 7:47 AM EDGING CATCHER Pulse 87 09/11/2023 7:47 AM EDGING CATCHER Temperature 35.9 C (96.7 F) 09/11/2023 7:47 AM EDGING CATCHER Respiratory Rate 16 09/11/2023 7:47 AM EDGING CATCHER Oxygen Saturation 97% 09/11/2023 7:47 AM EDGING CATCHER Inhaled Oxygen Concentration - - Weight 131.8 kg (290 lb 9.6 oz) 09/10/2023 6:00 AM EDGING CATCHER Height 188 cm (6' 2) 09/10/2023 6:00 AM EDGING CATCHER Body Mass Index 37.31 09/10/2023 6:00 AM EDGING CATCHER Plan of Treatment Health Maintenance Due Date [...] this topic Medical Devices Implanted Type Area Manager Social Device Identifier Shelf Expiration Date Model / Serial / Lot DepDigiZmart Orthopaedics Inc Bi Mentum 53mm Press Fit Femoral Proximal Cup Acetabular [id number] - Sna - [id number] Implanted:Qty: 1 on 09/10/2023 by Rich Smith MD at [facility] Other - see comments Left: Hip [employer] 09/03/2027 [id number] / NA / [id number] Description:Implant pause pe rformed. [employer] Liner Acet Hip Size 28 Poly Bi Mentum Altrx 53mm [id number] - Sna - [id number] Implanted:Qty: 1 on 09/10/2023 by Rich Smith MD at [facility] Other - see comments Left: Hip [employer] [id number] 04/04/2027 [id number] / NA / [id number] Description:Implant pause pe rformed. [employer] Articul/Mihir 28mm Cementless Hip +1.5mm 12/14 Taper Head Femoral Latex Free [id number] - Sna - [id number] Implanted:Qty: 1 on 09/10/2023 by Rich Smith MD at [facility] Other - see comments Left: Hip [employer] [id number] 02/03/2028 [id number] / NA / [id number] Description:Implant pause pe rformed. [employer] Actis L111 Mm Collar Hip 8 High Offset Stem Femoral [id number] - Sna - [id number] Implanted:Qty: 1 on 09/10/2023 by Rich Smith MD at [facility] Other - see comments Left: Hip [employer] [id number] 04/04/2033 [id number] / NA / [id number] Description:Implant pause pe rformed. [facility] [employer] Advance Directives For more information, please contact: [phone] * Full Code (Latest Code Status on File) Date Activated Date Inactivated Comments 09/10/2023 9:26 AM 09/11/2023 2:44 PM Care Teams Telecommunications Manager Relationship Specialty Start Date End Date Jesus Clements MD PCP - General 03/24/17
== END 2025-04-11 10:06 | disposition home or self-care (01) ==
PROVIDERS: PCP Internal Medicine; Visit Provider Physician Assistant
DX: N20.0 Calculus of kidney (principal)
CPT/HCPCS: 74018